=== PATIENT | female | born 1970 | race Caucasian/White ===

== ENCOUNTER 2017-02-22 07:42 | Inpatient (IN) | payer OTHER ==
[~2017-02-22] VITALS: Ht 165.1 cm; Wt 61.6 kg
[~2017-02-22 07:42] MED LIST: ECOT81TA2 PO; FURO1TAB62 PO; FURO20 PO; KCL10C PO; LISI-519 PO; LISI5 PO; PRAV40 PO
[2017-02-22 07:44] VITALS: BP 111/78; PULSE 101; RESP 15; TEMP 97.8; O2SAT 100
[2017-02-22] MEDS ORDERED: ASPIRIN 81 MG CHEW TAB CHEW ONE (08:00)
[2017-02-22] MEDS ORDERED: SODIUM CHLORIDE 0.9% FLUSH 10 ML FLUSH IVF PRN (08:00)
[2017-02-22] MEDS ORDERED: FUROSEMIDE 40 MG/4 ML VIAL IVP ONE (08:00)
--- NOTE | 2017-02-22 08:00 | PD ---
HPI Chief Complaint: Respiratory Symptoms Time Seen by Provider: 07:52 Travel History International Travel<30 days: No Contact w/Intl Traveler<30days: No Traveled to known affect area: No History of Present Illness HPI The patient is a 46-year-old female who presents to the emergency department for 2 days of shortness of breath. The patient does have a history congestive heart failure previous cardiomyopathy, takes Lasix on a daily basis, however, does not take any other medications. The patient states she is unable to take aspirin on a daily basis secondary to financial restrictions. The patient's shortness of breath is worse with exertion, worse with lying supine, and slightly alleviated at rest. The patient does note a productive cough producing clear to white sputum. The patient denies any chest pain or lower extremity edema. She does complain of mild nausea without any vomiting. The patient denies any history of pulmonary embolism or DVT. The patient does follow-up with the wood milling machine hand on an outpatient basis, Dr. Larson, however, has not seen a wood milling machine hand for "sometime ". The patient states she does not have a primary physician. Symptoms are moderate, worse with exertion and lying supine, and slightly alleviated at rest. 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 age 22(leap proceedure done)) Cardiovascular Problems: Yes High Cholesterol: No Chest Pain: Yes (heavyness new onset) Congestive Heart Failure: Yes COPD: No Diabetes: No Endocrine: No Genitourinary: No Immune Disorder: No Musculoskeletal: No Neurologic: No Psychiatric: No Reproductive: No Respiratory: No Sleep Apnea: No Thyroid Disease: No ?: Not LMP: 01/27/17 Dilation and Curettage (D&C): Yes Past Surgical History Section: Yes Other Surgery: Yes ( x 2, d & c, ) Social History Alcohol Use: Yes (occas) Tobacco Use: Yes Substance Use: Yes (raul) Allergies-Medications (Allergen,Severity, Reaction): Coded Allergies: No Known Allergies (Unverified , 02/22/17) Reported Meds & Prescriptions Reported Meds & Active Scripts Active Lisinopril 5 Mg Tab 5 Mg PO DAILY Lasix (Furosemide) 20 Mg Tab 20 Mg PO BID KCl 10 Meq Cap (Potassium Chloride) 10 Meq Capcr 10 Meq PO DAILY 30 Days Pravastatin Sodium 40 Mg Tab 40 Mg PO DAILY 30 Days Prinivil 5 mg (Lisinopril) 5 Mg Tab 2.5 Mg PO HS 30 Days Lasix 20 Mg Tab (Furosemide) 20 Mg Tab 20 Mg PO DAILY 30 Days Ecotrin Low Strength (Aspirin) 81 Mg Tabec 81 Mg PO DAILY 30 Days Review of Systems Except as stated in HPI: all other systems reviewed are Neg General / Constitutional: No: Fever HENT: No: Lightheadedness Cardiovascular: Positive: Dyspnea on exertion, No: Chest Pain or Discomfort, Diaphoresis Respiratory: Positive: Cough, Shortness of Breath, Orthopnea Gastrointestinal: Positive: Nausea, No: Vomiting Musculoskeletal: No: Edema Neurologic: No: Dizziness Physical Exam Narrative GENERAL: Awake, alert, 46 year-old female who appears her stated age and is in no acute respiratory distress. SKIN: Focused skin assessment warm/dry. HEAD: Atraumatic. Normocephalic. EYES: Pupils equal and round. No scleral icterus. No injection or drainage. ENT: No nasal bleeding or discharge. Mucous membranes pink and moist. NECK: Trachea midline. No JVD. CARDIOVASCULAR: Regular, tachycardic with a heart rate of 110. RESPIRATORY: No accessory muscle use. Minimally diminished breath sounds in the bases bilateral. GASTROINTESTINAL: Abdomen soft, non-tender, nondistended. No rebound tenderness. MUSCULOSKELETAL: No obvious deformities. No clubbing. No cyanosis. No edema. Calves are soft bilaterally. NEUROLOGICAL: Awake and alert. No obvious cranial nerve deficits. Motor grossly within normal limits. Normal speech. PSYCHIATRIC: Appropriate mood and affect; insight and judgment normal. Data Data Last Documented VS Vital Signs Date Time Temp Pulse Resp B/P Pulse Ox O2 Delivery O2 Flow Rate FiO2 02/22/17 08:05 100 Room Air 02/22/17 07:56 103 18 02/22/17 07:44 97.8 111/78 Orders Complete Blood Count With Diff (02/22/17 07:57) Comprehensive Metabolic Panel (02/22/17 07:57) B-Type Natriuretic Peptide (02/22/17 07:57) Act Partial Throm Time (Ptt) (02/22/17 07:57) Prothrombin Time / Inr (Pt) (02/22/17 07:57) Magnesium (Mg) (02/22/17 07:57) Ckmb (Isoenzyme) Profile (02/22/17 07:57) Troponin I (02/22/17 07:57) Iv Access Insert/Monitor (02/22/17 07:57) Electrocardiogram (02/22/17 07:57) Ecg Monitoring (02/22/17 07:57) Oximetry (02/22/17 07:57) Oxygen Administration (02/22/17 07:57) Chest, Single Ap (02/22/17 07:57) Sodium Chloride 0.9% Flush (Ns Flush) (02/22/17 08:00) Furosemide Inj (Lasix Inj) (02/22/17 08:00) Aspirin Chew (Aspirin Chew) (02/22/17 08:00) Admit Order (Ed Use Only) (02/22/17 10:04) Labs Laboratory Tests Test 02/22/17 08:07 White Blood Count 9.0 TH/MM3 Red Blood Count 4.23 MIL/MM3 Hemoglobin 11.0 GM/DL Hematocrit 34.4 % Mean Corpuscular Volume 81.4 FL Mean Corpuscular Hemoglobin 26.0 PG Mean Corpuscular Hemoglobin 32.0 % Concent Red Cell Distribution Width 17.2 % Platelet Count 241 TH/MM3 Mean Platelet Volume 10.2 FL Neutrophils (%) (Auto) 63.6 % Lymphocytes (%) (Auto) 27.1 % Monocytes (%) (Auto) 6.8 % Eosinophils (%) (Auto) 1.7 % Basophils (%) (Auto) 0.8 % Neutrophils # (Auto) 5.7 TH/MM3 Lymphocytes # (Auto) 2.4 TH/MM3 Monocytes # (Auto) 0.6 TH/MM3 Eosinophils # (Auto) 0.2 TH/MM3 Basophils # (Auto) 0.1 TH/MM3 CBC Comment DIFF FINAL Differential Comment Prothrombin Time 10.8 SEC Prothromb Time International 1.0 RATIO Ratio Activated Partial 25.9 SEC Thromboplast Time Sodium Level 137 MEQ/L Potassium Level 4.1 MEQ/L Chloride Level 107 MEQ/L Carbon Dioxide Level 23.7 MEQ/L Anion Gap 6 MEQ/L Blood Urea Nitrogen 13 MG/DL Creatinine 0.93 MG/DL Estimat Glomerular Filtration 65 ML/MIN Rate Random Glucose 107 MG/DL Calcium Level 8.1 MG/DL Magnesium Level 2.0 MG/DL Total Bilirubin 0.4 MG/DL Aspartate Amino Transf 58 U/L (AST/SGOT) Alanine Aminotransferase 86 U/L (ALT/SGPT) Alkaline Phosphatase 132 U/L Total Creatine Kinase 67 U/L Troponin I 0.03 NG/ML B-Type Natriuretic Peptide 1522 PG/ML Total Protein 6.3 GM/DL Albumin 2.9 GM/DL MDM Medical Decision Making Medical Screen Exam Complete: Yes Emergency Medical Condition: Yes Interpretation(s) EKG reveals sinus tachycardia with a heart rate of 100. Inverted T waves noted in lead V5, V6,. Low QRS voltage in the extremity leads. No significant changes compared to EKG performed June 25, 2016. Laboratory Tests Test 02/22/17 08:07 White Blood Count 9.0 TH/MM3 Red Blood Count 4.23 MIL/MM3 Hemoglobin 11.0 GM/DL Hematocrit 34.4 % Mean Corpuscular Volume 81.4 FL Mean Corpuscular Hemoglobin 26.0 PG Mean Corpuscular Hemoglobin 32.0 % Concent Red Cell Distribution Width 17.2 % Platelet Count 241 TH/MM3 Mean Platelet Volume 10.2 FL Neutrophils (%) (Auto) 63.6 % Lymphocytes (%) (Auto) 27.1 % Monocytes (%) (Auto) 6.8 % Eosinophils (%) (Auto) 1.7 % Basophils (%) (Auto) 0.8 % Neutrophils # (Auto) 5.7 TH/MM3 Lymphocytes # (Auto) 2.4 TH/MM3 Monocytes # (Auto) 0.6 TH/MM3 Eosinophils # (Auto) 0.2 TH/MM3 Basophils # (Auto) 0.1 TH/MM3 CBC Comment DIFF FINAL Differential Comment Prothrombin Time 10.8 SEC Prothromb Time International 1.0 RATIO Ratio Activated Partial 25.9 SEC Thromboplast Time Sodium Level 137 MEQ/L Potassium Level 4.1 MEQ/L Chloride Level 107 MEQ/L Carbon Dioxide Level 23.7 MEQ/L Anion Gap 6 MEQ/L Blood Urea Nitrogen 13 MG/DL Creatinine 0.93 MG/DL Estimat Glomerular Filtration 65 ML/MIN Rate Random Glucose 107 MG/DL Calcium Level 8.1 MG/DL Magnesium Level 2.0 MG/DL Total Bilirubin 0.4 MG/DL Aspartate Amino Transf 58 U/L (AST/SGOT) Alanine Aminotransferase 86 U/L (ALT/SGPT) Alkaline Phosphatase 132 U/L Total Creatine Kinase 67 U/L Troponin I 0.03 NG/ML B-Type Natriuretic Peptide 1522 PG/ML Total Protein 6.3 GM/DL Albumin 2.9 GM/DL Chest x-ray reveals interstitial pulmonary edema. Differential Diagnosis Differential diagnosis includes congestive heart failure, cardiomyopathy, pleural effusion, pulmonary edema, pulmonary embolism, acute coronary syndrome, bronchitis, COPD, pneumonia. Narrative Course IV was established, labs were drawn and sent, and the patient was placed on cardiac telemetry monitoring and continuous pulse oximetry monitoring. EKG was ordered and interpreted. Chest x-ray was obtained. The patient was administered Lasix 40 mg intravenously. I reviewed the patient's EMR, she had a nuclear medicine myocardial perfusion scan performed on October 13, 2015 which revealed global hypokinesis with an EF of 18%. The patient also had an echo performed on October 12, 2015 which revealed an EF of 25-30%. The patient had a CT pulmonary angiogram which revealed bilateral interstitial edema but no evidence of pulmonary embolism. The patient was provided aspirin 162 mg orally. The patient's BNP is elevated greater than 1500, when I compared to previous BNP is on EMR, it is more than double her previous admission level. Chest x-ray reveals interstitial pulmonary edema. The patient was reevaluated at 9:05 AM, she still has shortness of breath, heart rate was 105, O2 sat was 92 % on room air. The patient is still symptomatic, after discussion with patient regarding outpatient follow-up versus 23 hour observation, she would prefer 23 hour observation. Therefore, the on-call medical service was paged for 23 hour observation. Physician Communication Physician Communication The on-call medical service was paged for 23 hour observation. I discussed the patient with Dr. Rogel who agrees with [address] Mejía. Diagnosis Primary Impression: CHF (congestive heart failure) Qualified Code: I50.9 - Acute on chronic congestive heart failure, unspecified congestive heart failure type Additional Impression: Tobacco abuse Condition: Stable Jose Oquendo MD Feb 22, 2017 08:00
[2017-02-22 08:27] LABS: AUTOMATED NEUTROPHIL # 5.7 TH/MM3 (1.8-7.7); BASOPHIL # 0.1 TH/MM3 (0-0.2); BASOPHIL % 0.8 % (0.0-2.0); EOSINOPHIL # 0.2 TH/MM3 (0-0.4); EOSINOPHIL % 1.7 % (0.0-4.0); HEMATOCRIT 34.4 % (35.0-46.0); HEMO FLAGS DIFF FINAL; LYMPH % 27.1 % (9.0-44.0); LYMPHOCYTE # 2.4 TH/MM3 (1.0-4.8); MEAN CELL VOLUME 81.4 FL (80.0-100.0); MONO % 6.8 % (0.0-8.0); NEUT % 63.6 % (16.0-70.0); PLATELET COUNT 241 TH/MM3 (150-450); RED BLOOD COUNT 4.23 MIL/MM3 (4.00-5.30); RED CELL DISTRIBUTION WIDTH 17.2 % (11.6-17.2)
[2017-02-22 08:35] LABS: APTT (PATIENT) 25.9 SEC (24.3-30.1); PROTHROMBIN TIME - PATIENT 10.8 SEC (9.8-11.6)
[2017-02-22 08:48] LABS: ANION GAP 6 MEQ/L (5-15); AST (GOT) 58 U/L (15-37); BICARBONATE 23.7 MEQ/L (21.0-32.0); BLOOD UREA NITROGEN 13 MG/DL (7-18); CHLORIDE 107 MEQ/L (98-107); GLOMERULAR FILTRATION RATE 65 ML/MIN (>89); POTASSIUM 4.1 MEQ/L (3.5-5.1); SODIUM (NA) 137 MEQ/L (136-145)
[2017-02-22 08:49] LABS: ALT (GPT) 86 U/L (10-53)
[2017-02-22 08:52] LABS: ALKALINE PHOSPHATASE 132 U/L (45-117); TOTAL BILIRUBIN ADULT 0.4 MG/DL (0.2-1.0)
[2017-02-22 08:59] LABS: CREATINE KINASE 67 U/L (26-192)
--- NOTE | 2017-02-22 09:13 | RADRPT ---
EXAM DATE/TIME: 02/22/2017 08:22 [facility] COMPARISON: CHEST SINGLE AP, June 25, 2016, 7:59. INDICATIONS : Short of breath and cough. MEDICAL HISTORY : Congestive heart failure. SURGICAL HISTORY : None. ENCOUNTER: Initial ACUITY: 3 days PAIN SCORE: 0/10 LOCATION: Bilateral chest FINDINGS: A single portable frontal view of the chest shows cardiomegaly with pulmonary vascular engorgement. I ndistinctness of the pulmonary vessels. Bibasilar interstitial prominence. No discrete effusions. Bon y structures are unremarkable. CONCLUSION: Interstitial pulmonary edema. Jay Fernando Jr., MD on February 22, 2017 at 9:10 Board Certified Radiologist. This report was verified electronically.
--- NOTE | 2017-02-22 10:22 | HHI.HP ---
[facility] Service Family Medicine Primary Care Physician No Primary Care Physician Admission Diagnosis congestive heart failure, cardiomyopathy, interstitial edema Diagnoses: International Travel<30 Days: No Contact w/Intl Traveler<30days: No Known Affected Area: No History of Present Illness Ms. Phelps is a 46 y/o F with a history of CHF presenting to the emergency department with 3 days of shortness of breath. She states that the shortness of breath has increased severity over each of the last 3 days and is worse with exertion, lying supine, and not alleviated at rest. She has no chest pain, palpitations, or peripheral edema. She also notes a productive cough with clear/ white sputum, but has resolved over the last 24 hours. She was previously diagnosed with CHF and cardiomyopathy of unknown etiology. She does have a fly worker, Dr. Larson, that has prescribed her Lasix 40 mg twice a day. She states that she has been out of the medication for the past 3 days which is likely exacerbated her symptoms. She has not followed up with her fly worker in over 6 months and her last hospitalization for CHF was approximately 6 months ago. She endorses no history of pulmonary embolism or DVT. On review of systems she does endorse a history of 6 months of intermittent dizziness and nausea that resolves without intervention. She states these episodes are weeks between each other and do not affect her everyday life. Review of Systems Constitutional: COMPLAINS OF: Dizziness, DENIES: Fever, Weight gain, Weight loss Eyes: DENIES: Blurred vision Ears, nose, mouth, throat: DENIES: Throat pain, Running Nose Respiratory: COMPLAINS OF: Cough, Sputum production (White), Shortness of breath, DENIES: Hemoptysis Cardiovascular: COMPLAINS OF: Dyspnea on Exertion, DENIES: Chest pain, Palpitations, Lower Extremity Edema Gastrointestinal: COMPLAINS OF: Nausea, DENIES: Abdominal pain, Diarrhea, Vomiting Genitourinary: DENIES: Dysuria Musculoskeletal: DENIES: Joint pain Integumentary: DENIES: Rash Immunologic/allergic: DENIES: Urticaria Neurologic: COMPLAINS OF: Headache Past Family Social History Past Medical History CHF Denies other PMHx Past Surgical History Laparoscopy with D&C Reported Medications Currently taking Lasix 40mg (two 20mg tablets) twice a day only. Allergies: Coded Allergies: No Known Allergies (Unverified , 02/22/17) Family History Mother - DM, HTN, brain malignancy, Father - DM, Sister - DM 2 children - healthy Social History Lives in [place] by herself. 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 Tobacco - 1/2 pack per day for 30 years (quit for 11 years in that timeframe roughly) Alcohol - occasionally, last drink she cannot remember last drink (months ago), no prior withdrawal Illicit - Marijuana occasionally (last time 2 weeks ago), denies other drug use Physical Exam Vital Signs Vital Signs Date Time Temp Pulse Resp B/P Pulse Ox O2 Delivery O2 Flow Rate FiO2 02/22/17 08:05 100 Room Air 02/22/17 07:56 103 18 100 Room Air 02/22/17 07:44 97.8 101 15 111/78 100 Physical Exam GENERAL: Well-nourished, well-developed female lying in bed in no acute distress watching TV. SKIN: Warm and dry. No rash. HEENT: Atraumatic, normocephalic with EOMI. PERRLA. MMM. No rhinorrhea. Oropharynx clear with no erythema or exudate. Multiple teeth missing with poor dentition. Pulsating JVD appreciated. No LAD or thyroid abnormality appreciated. CARDIOVASCULAR: Regular rate and rhythm without obvious murmurs, gallops, or rubs. RESPIRATORY: Bilateral rhonchi at the bases, right greater than left. No wheezing appreciated. No increased work of breathing appreciated. GASTROINTESTINAL: Abdomen soft, non-tender, nondistended with positive bowel sounds. No masses appreciated. MUSCULOSKELETAL: No cyanosis or edema. Strength grossly WNL. 2+ pulses in all 4 extremity. BACK: Nontender without obvious deformity. No CVA tenderness. NEURO/PSYCH: Afocal. Awake, alert, and oriented x3. Normal speech and judgment. Normal interaction with the examiner. Laboratory Laboratory Tests Test 02/22/17 08:07 White Blood Count 9.0 Red Blood Count 4.23 Hemoglobin 11.0 Hematocrit 34.4 Mean Corpuscular Volume 81.4 Mean Corpuscular Hemoglobin 26.0 Mean Corpuscular Hemoglobin 32.0 Concent Red Cell Distribution Width 17.2 Platelet Count 241 Mean Platelet Volume 10.2 Neutrophils (%) (Auto) 63.6 Lymphocytes (%) (Auto) 27.1 Monocytes (%) (Auto) 6.8 Eosinophils (%) (Auto) 1.7 Basophils (%) (Auto) 0.8 Neutrophils # (Auto) 5.7 Lymphocytes # (Auto) 2.4 Monocytes # (Auto) 0.6 Eosinophils # (Auto) 0.2 Basophils # (Auto) 0.1 CBC Comment DIFF FINAL Differential Comment Prothrombin Time 10.8 Prothromb Time International 1.0 Ratio Activated Partial 25.9 Thromboplast Time Sodium Level 137 Potassium Level 4.1 Chloride Level 107 Carbon Dioxide Level 23.7 Anion Gap 6 Blood Urea Nitrogen 13 Creatinine 0.93 Estimat Glomerular Filtration 65 Rate Random Glucose 107 Calcium Level 8.1 Magnesium Level 2.0 Total Bilirubin 0.4 Aspartate Amino Transf 58 (AST/SGOT) Alanine Aminotransferase 86 (ALT/SGPT) Alkaline Phosphatase 132 Total Creatine Kinase 67 Troponin I 0.03 B-Type Natriuretic Peptide 1522 Total Protein 6.3 Albumin 2.9 Result Diagram: 02/22/17 0807 02/22/17 0807 Imaging Last 72 hours Impressions Chest X-Ray 02/22/17 0757 Signed Impressions: Service Date/Time: Wednesday, February 22, 2017 08:22 - CONCLUSION: Interstitial pulmonary edema. Jay Fernando Jr., MD Assessment and Plan Assessment and Plan Ms. Phelps is a 46 y/o F with a history of CHF presenting to the emergency department with 3 days of shortness of breath likely due to CHF exacerbation secondary to medical noncompliance. Code Status Full code Discussed Condition With Dr. Oquendo, ER physician Dr. Galvez Problem List: (1) CHF (congestive heart failure) Status: Acute Plan: Patient presenting with uncompensated acute on chronic CHF exacerbation with increasing shortness of breath over the past 3 days. Patient has been noncompliant with her outpatient medications. Chest x-ray: Interstitial pulmonary edema EKG: Sinus tachycardia to 100 bpm. Normal intervals. No cardiac block, bundles , or ST elevation/depression appreciated. Reading per medical team. Trending 2. Echocardiogram: Ordered BMP: 1522 Troponin: 0.03, 2 pending Electrolytes: within normal limits Telemetry Incentive spirometer Daily weight ordered Medications: Lasix 40 mg IV given once in ER Aspirin 162 mg given once in ER Restart home Lasix 40 mg by mouth twice a day Continue aspirin 81 mg daily Morphine 2 mg IV every hour when necessary for chest pain Clonidine 0.1 mg every 6 hours when necessary for blood pressure greater than (2) Tobacco abuse Status: Chronic Plan: Patient with chronic tobacco abuse Nicotine patch 14 mg daily, to be removed at night (3) Nutrition, metabolism, and development symptoms Status: Acute Plan: Fluids: Tolerating fluids by mouth, currently in fluid overload Electrolyte: Within normal limits Diet: Heart healthy diet with 1500 mL fluid restriction and 2 g sodium restriction Prophylaxis: DuoNeb's when necessary for shortness of breath, Hydroxyzine when necessary for insomnia, Apoorva-Colace when necessary for constipation (4) No contraindication to deep vein thrombosis (DVT) prophylaxis Status: Acute Plan: Heparin thousand units every 8 hours SCD/TEDs Problem Qualifiers (1) CHF (congestive heart failure): Qualified Code: I50.9 - Acute on chronic congestive heart failure, unspecified congestive heart failure type Hu Rogel MD R2 Feb 22, 2017 10:22
[2017-02-22] MEDS ORDERED: SODIUM CHLORIDE 0.9% FLUSH 10 ML FLUSH IV FLUSH SCH (10:30)
[2017-02-22] MEDS ORDERED: SODIUM CHLORIDE 0.9% FLUSH 10 ML FLUSH IV FLUSH PRN ×2 (10:30→11:00)
[2017-02-22] MEDS: SODIUM CHLORIDE 0.9% FLUSH 10 ML FLUSH IV FLUSH SCH ×2 (11:00→20:56)
[2017-02-22] MEDS ORDERED: MORPHINE SULFATE 4 MG/ML INJ IV PUSH PRN (11:00)
[2017-02-22] MEDS ORDERED: ASPIRIN 81 MG CHEW TAB CHEW SCH (11:00)
[2017-02-22] MEDS: HEPARIN SODIUM - SQ 10,000 UNITS/ML VIAL SQ SCH ×2 (11:52→17:50)
[2017-02-22] MEDS: POTASSIUM CHLORIDE 10 MEQ CONTROLLED RELEASE TAB PO SCH ×2 (11:52→20:55)
[2017-02-22 12:00] VITALS: BP 106/77; PULSE 103; RESP 18; TEMP 98.2; O2SAT 98
[2017-02-22 12:11] VITALS: O2SAT 100
[2017-02-22 14:55] VITALS: BP 105/76; PULSE 107; RESP 20; TEMP 98.2; O2SAT 97
--- NOTE | 2017-02-22 14:59 | EKG ---
Date Performed: 02/22/2017 Time Performed: 08:06:14 PTAGE: 46 years EKG: SINUS TACHYCARDIA LEFT ATRIAL ENLARGEMENT LOW QRS VOLTAGE IN EXTREMITY LEADS NONSPECIFIC T- WAVE ABNORMALITY ABNORMAL ECG PREVIOUS TRACING : 06/25/2016 07.56 Since previous tracing, no significant change noted DOCTOR: Nathan Genao Interpretating Date/Time 02/22/2017 14:56:56
[2017-02-22] MEDS ORDERED: cloNIDine HCL 0.1 MG TAB PO PRN (15:15)
[2017-02-22] MEDS ORDERED: NICOTINE 14 MG/24 HR PATCH T-DERMAL ONE (15:15)
[2017-02-22] MEDS ORDERED: DOCUSATE SODIUM 50 MG/SENNA 8.6 MG TAB PO PRN (15:15)
[2017-02-22 17:31] VITALS: PULSE 14
[2017-02-22] MEDS: FUROSEMIDE 40 MG TAB PO SCH (17:49)
--- NOTE | 2017-02-22 18:15 | HHI.FPPN ---
Subjective Remarks Medicine attending note: Pleasant 46-year-old woman admitted through the emergency room with 2-3 days of increasing shortness of breath without chest pain. Patient has a history of a dilated cardiomyopathy with a previous echo cardiogram and October 2015 revealing a ejection fraction of 25-30%. Nuclear stress test old global hypokinesis apparently without evidence of ischemic disease. No known viral etiology, denies any relationship to drug usage, no cocaine usage. States she has used marijuana in the past. Denies history of excessive alcohol usage in the past. Patient does state that she's had difficulty maintaining her medications. Previously on diuretics, afterload reduction and lipid therapy. Has been taking Lasix 20 mg twice a day and Ecotrin 81 mg daily. Currently comfortable after having diuresed initially through treatment in the emergency room. Objective Vitals Vital Signs Date Time Temp Pulse Resp B/P Pulse Ox O2 Delivery O2 Flow Rate FiO2 02/22/17 18:01 02/22/17 17:31 14 02/22/17 14:55 98.2 107 20 105/76 97 02/22/17 12:11 100 21 02/22/17 12:00 98.2 103 18 106/77 98 Room Air 02/22/17 08:05 100 Room Air 02/22/17 07:56 103 18 100 Room Air 02/22/17 07:44 97.8 101 15 111/78 100 I/O 02/21/17 02/21/17 02/21/17 02/22/17 02/22/17 02/22/17 07:00 15:00 23:00 07:00 15:00 23:00 Intake Total 0 ml Balance 0 ml Intake IV Total 0 ml Result Diagram: 02/22/17 0807 02/22/17 0807 Objective Remarks Vital signs noted. Slightly tachycardic. Appearance: Middle-age woman who is alert oriented pleasant conversation in no acute distress resting supine. HEENT: Oropharynx nonlocalizing Neck: JVD present to 30. Lungs: Bibasilar Rales, superiorly clear to auscultation. Cardiac: S1-S2, soft systolic murmur. No definite S3, no rubs. Abdomen: Appearance unremarkable, soft, palpation organomegaly or tenderness, no masses. Extremities without edema, intact pedal pulses, feet are warm and dry. EKG no acute changes, troponins within normal limits. A/P Assessment and Plan 46-year-old woman admitted with congestive heart failure, etiology related to a dilated cardiomyopathy with a markedly diminished ejection fraction and global hypokinesis, the etiology of which is not clear. Patient seen and examined. Case reviewed and discussed with resident team. Agree with plan of care as discussed with me and documented in the resident note. Problem List: (1) CHF (congestive heart failure) Status: Acute Plan: Patient presenting with uncompensated acute on chronic CHF exacerbation with increasing shortness of breath over the past 3 days. Patient has been noncompliant with her outpatient medications. Chest x-ray: Interstitial pulmonary edema EKG: Sinus tachycardia to 100 bpm. Normal intervals. No cardiac block, bundles , or ST elevation/depression appreciated. Reading per medical team. Trending 2. Echocardiogram: Ordered BMP: 1522 Troponin: 0.03, 2 pending Electrolytes: within normal limits Telemetry Incentive spirometer Daily weight ordered Medications: Lasix 40 mg IV given once in ER Aspirin 162 mg given once in ER Restart home Lasix 40 mg by mouth twice a day Continue aspirin 81 mg daily Morphine 2 mg IV every hour when necessary for chest pain Clonidine 0.1 mg every 6 hours when necessary for blood pressure greater than (2) Tobacco abuse Status: Chronic Plan: Patient with chronic tobacco abuse Nicotine patch 14 mg daily, to be removed at night (3) Nutrition, metabolism, and development symptoms Status: Acute Plan: Fluids: Tolerating fluids by mouth, currently in fluid overload Electrolyte: Within normal limits Diet: Heart healthy diet with 1500 mL fluid restriction and 2 g sodium restriction Prophylaxis: DuoNeb's when necessary for shortness of breath, Hydroxyzine when necessary for insomnia, Apoorva-Colace when necessary for constipation (4) No contraindication to deep vein thrombosis (DVT) prophylaxis Status: Acute Plan: Heparin thousand units every 8 hours SCD/TEDs Problem Qualifiers (1) CHF (congestive heart failure): Qualified Code: I50.9 - Acute on chronic congestive heart failure, unspecified congestive heart failure type Jack Mejía MD Feb 22, 2017 18:15
[2017-02-22 20:00] VITALS: BP 110/79; PULSE 106; RESP 20; TEMP 98; O2SAT 99
[2017-02-22] MEDS: REMOVE OLD PATCH T-DERMAL SCH (20:56)
[2017-02-23] VITALS (8 sets, daily range): BP systolic 111–129; BP diastolic 61–91; PULSE 103–115; RESP 18–24; TEMP 97.2–98; O2SAT 95–99
[2017-02-23] MEDS: HEPARIN SODIUM - SQ 10,000 UNITS/ML VIAL SQ SCH ×3 (02:46→18:42)
[2017-02-23] MEDS: RESP: ALBUTEROL 2.5 MG/IPRATROPIUM 0.5 MG NEB (PRN) NEB (03:05)
[2017-02-23 04:17] LABS: HEMATOCRIT 34.2 % (35.0-46.0); MEAN CELL VOLUME 81.6 FL (80.0-100.0); MEAN CORPUSCULAR HEMOGLOBIN 25.5 PG (27.0-34.0); MEAN CORPUSCULAR HGB CONC 31.2 % (32.0-36.0); PLATELET COUNT 223 TH/MM3 (150-450); RED BLOOD COUNT 4.19 MIL/MM3 (4.00-5.30); RED CELL DISTRIBUTION WIDTH 17.2 % (11.6-17.2); REVIEW FLAG FINAL; WHITE BLOOD COUNT 10.4 TH/MM3 (4.0-11.0)
[2017-02-23 05:30] LABS: ALT (GPT) 82 U/L (10-53); ANION GAP 5 MEQ/L (5-15); AST (GOT) 43 U/L (15-37); BICARBONATE 24.1 MEQ/L (21.0-32.0); BLOOD UREA NITROGEN 13 MG/DL (7-18); CHLORIDE 107 MEQ/L (98-107); GLOMERULAR FILTRATION RATE 70 ML/MIN (>89); POTASSIUM 4.1 MEQ/L (3.5-5.1); SODIUM (NA) 136 MEQ/L (136-145)
[2017-02-23 05:33] LABS: ALKALINE PHOSPHATASE 126 U/L (45-117); TOTAL BILIRUBIN ADULT 0.4 MG/DL (0.2-1.0)
[2017-02-23] MEDS: NICOTINE 14 MG/24 HR PATCH T-DERMAL SCH (09:33)
[2017-02-23] MEDS: POTASSIUM CHLORIDE 10 MEQ CONTROLLED RELEASE TAB PO SCH ×2 (09:33→20:51)
[2017-02-23] MEDS: ASPIRIN 81 MG CHEW TAB CHEW SCH (09:33)
[2017-02-23] MEDS: FUROSEMIDE 40 MG TAB PO SCH ×2 (09:33→17:45)
[2017-02-23] MEDS: SODIUM CHLORIDE 0.9% FLUSH 10 ML FLUSH IV FLUSH SCH ×2 (09:34→20:50)
[2017-02-23] MEDS: SPIRONOLACTONE 25 MG TAB PO SCH (12:12)
--- NOTE | 2017-02-23 12:12 | HHI.FPPN ---
Subjective Remarks 46 year old female with a history of CHF and cardiomyopathy presented to the ED yesterday with increasing shortness of breath. She also reported a productive cough with white sputum. Before presentation she ran out of her medications. This morning she reports she slept poorly overnight and had night sweats and chills. She had no fevers overnight. She continues to have shortness of breath. She also has a headache and chronic right shoulder pain. She continues to have pedal edema. No chest pain. No abdominal pain, nausea, vomiting, or diarrhea. No calf tenderness. She is on room air and not in respiratory distress. She is mildly tachycardiac at about 105 rate. (Fahad Gutierrez MD R3) Objective Vitals Vital Signs Date Time Temp Pulse Resp B/P Pulse Ox O2 Delivery O2 Flow Rate FiO2 02/23/17 08:04 97.2 105 18 111/84 99 02/23/17 06:29 105 02/23/17 04:08 98.0 103 20 127/81 97 02/23/17 00:09 97.7 108 24 124/89 95 02/22/17 20:00 106 02/22/17 20:00 98.0 106 20 110/79 99 02/22/17 18:01 02/22/17 17:31 14 02/22/17 14:55 98.2 107 20 105/76 97 02/22/17 12:11 100 21 02/22/17 12:00 98.2 103 18 106/77 98 Room Air I/O 02/22/17 02/22/17 02/22/17 02/23/17 02/23/17 02/23/17 07:00 15:00 23:00 07:00 15:00 23:00 Intake Total 480 ml 800 ml Balance 480 ml 800 ml Intake Oral 480 ml 800 ml IV Total 0 ml # Voids 2 3 # Bowel Movements 0 0 (Fahad Gutierrez MD R3) Result Diagram: 02/23/17 0358 02/23/17 0358 Imaging Last 72 hours Impressions Chest X-Ray 02/22/17 0757 Signed Impressions: Service Date/Time: Wednesday, February 22, 2017 08:22 - CONCLUSION: Interstitial pulmonary edema. Jay Fernando Jr., MD Objective Remarks Vital signs noted. Slightly tachycardic. BP normal. Afebrile. Appearance: Sitting up in bed, no distress, room air, breathing normal HEENT: Normocephalic, no nasal discharge Neck: JVD present to 30. Lungs: Crackles in the lung bases bilaterally, on room air, no distress, no wheezing Cardiac: S1-S2, S3 present, no murmur heard today. Abdomen: Soft, nontender, non-distended, no organomegaly Extremities: Has pedal edema (Fahad Gutierrez MD R3) A/P Assessment and Plan 46-year-old woman admitted with likely acute exacerbation of CHF, etiology related to dilated cardiomyopathy with a markedly diminished ejection fraction and global hypokinesis, the etiology of which is not clear. Discharge Planning Discharge when shortness of breath reasonably resolved, afebrile, no leukocytosis, medically stable. Will need to be discharged on CHF medication regimen. A difficulty is that she lacks a primary care physician at this time. Consulting case management to help her find a PCP. She would also benefit from a fiscal specialist and a cardiac rehab program. Ultimately she may require an ICD or even a heart transplant given the severity of her disease. (Fahad Gutierrez MD R3) Assessment and Plan Patient seen and examined on 02/23/17. Case reviewed and discussed with the resident team. Agree with the plan of care as discussed with me and documented in the resident note. (Jack Mejía MD) Problem List: (1) CHF (congestive heart failure) Status: Acute Plan: History of CHF with cardiomyopathy, severe EF reduction to the 20-25% range 6 months ago. Patient presenting with uncompensated acute on chronic CHF exacerbation with increasing shortness of breath over the past 3 days. Chest x- ray: Interstitial pulmonary edema. EKG: Sinus tachycardia to 100 bpm. Normal intervals. No cardiac block, bundles, or ST elevation/depression appreciated. Troponins normal X3. BNP elevated to 1522. ECHO pending. - Supplemental O2 therapy as needed Continue cardiac monitoring Continue incentive spirometry Request strict I's and O's and daily weights - Salt and free water restriction Lasix 40 mg by mouth twice a day - Spironolactone 25 mg daily - Start jason inhibitor and beta erinn when stabilized before discharge (2) Tobacco abuse Status: Chronic Plan: Patient with chronic tobacco abuse Nicotine patch 14 mg daily, to be removed at night - Counseling on nicotine cessation - Would benefit from patches/gum/medication as an outpatient (3) Nutrition, metabolism, and development symptoms Status: Acute Plan: Fluids: 1.5L free water restriction, Electrolyte: Within normal limits, sodium restriction 2g Diet: Heart healthy diet with 1500 mL fluid restriction and 2 g sodium restriction Prophylaxis: DuoNeb's when necessary for shortness of breath, Hydroxyzine when necessary for insomnia, Apoorva-Colace when necessary for constipation (4) No contraindication to deep vein thrombosis (DVT) prophylaxis Status: Acute Plan: Heparin 1000 units every 8 hours SCD/TEDs (Fahad Gutierrez MD R3) Problem Qualifiers (1) CHF (congestive heart failure): Fahad Gutierrez MD R3 Feb 23, 2017 12:12 Jack Mejía MD Feb 25, 2017 16:05
--- NOTE | 2017-02-23 15:49 | EKG ---
Date Performed: 02/22/2017 Time Performed: 17:25:24 PTAGE: 46 years EKG: SINUS TACHYCARDIA POSSIBLE LEFT ATRIAL ENLARGEMENT NONSPECIFIC T-WAVE ABNORMALITY ABNORMAL RHYTHM ECG LOW LIMB LEAD VOLTAGE Since PREVIOUS TRACING , no significant change noted PREVIOUS TRACIN02/22/2017 14.24 DOCTOR: Roshan Norwood Interpretating Date/Time 02/23/2017 15:47:31
--- NOTE | 2017-02-23 15:49 | EKG ---
Date Performed: 02/23/2017 Time Performed: 02:47:58 PTAGE: 46 years EKG: Sinus tachycardia Leftward axis Lateral T wave changes are nonspecific Low limb lead voltag e Borderline ECG PREVIOUS TRACING : 02/22/2017 17.25 Since previous tracing, no significant change noted DOCTOR: Roshan Norwood Interpretating Date/Time 02/23/2017 15:48:42
--- NOTE | 2017-02-23 15:49 | EKG ---
Date Performed: 02/22/2017 Time Performed: 14:24:04 PTAGE: 46 years EKG: SINUS TACHYCARDIA LEFT ATRIAL ENLARGEMENT MARKED LEFT AXIS DEVIATION NONSPECIFIC T-WAVE ABN ORMALITY LOW QRS VOLTAGE IN EXTREMITY LEADS Since previous tracing, no significant change noted ABNOR MAL ECG PREVIOUS TRACING : 02/22/2017 08.06 DOCTOR: Roshan Norwood Interpretating Date/Time 02/23/2017 15:47:07
[2017-02-23] MEDS: REMOVE OLD PATCH T-DERMAL SCH (20:51)
[2017-02-24] VITALS (7 sets, daily range): BP systolic 101–126; BP diastolic 66–86; PULSE 93–108; RESP 18–22; TEMP 97–97.7; O2SAT 94–100
[2017-02-24] MEDS: HEPARIN SODIUM - SQ 10,000 UNITS/ML VIAL SQ SCH ×3 (03:46→18:15)
[2017-02-24 06:16] LABS: HEMATOCRIT 36.9 % (35.0-46.0); MEAN CELL VOLUME 81.8 FL (80.0-100.0); MEAN CORPUSCULAR HEMOGLOBIN 25.8 PG (27.0-34.0); MEAN CORPUSCULAR HGB CONC 31.5 % (32.0-36.0); PLATELET COUNT 234 TH/MM3 (150-450); RED BLOOD COUNT 4.51 MIL/MM3 (4.00-5.30); RED CELL DISTRIBUTION WIDTH 17.1 % (11.6-17.2); REVIEW FLAG FINAL
[2017-02-24 06:44] LABS: ALKALINE PHOSPHATASE 113 U/L (45-117); ALT (GPT) 66 U/L (10-53); ANION GAP 11 MEQ/L (5-15); AST (GOT) 29 U/L (15-37); BICARBONATE 19.3 MEQ/L (21.0-32.0); BLOOD UREA NITROGEN 13 MG/DL (7-18); CHLORIDE 108 MEQ/L (98-107); GLOMERULAR FILTRATION RATE 82 ML/MIN (>89); POTASSIUM 4.4 MEQ/L (3.5-5.1); SODIUM (NA) 138 MEQ/L (136-145); TOTAL BILIRUBIN ADULT 0.6 MG/DL (0.2-1.0)
[2017-02-24] MEDS: RESP: ALBUTEROL 2.5 MG/IPRATROPIUM 0.5 MG NEB (PRN) NEB ×2 (08:15→16:20)
[2017-02-24] MEDS: SODIUM CHLORIDE 0.9% FLUSH 10 ML FLUSH IV FLUSH SCH ×2 (09:00→21:58)
[2017-02-24] MEDS: FUROSEMIDE 40 MG TAB PO SCH ×2 (09:00→17:39)
[2017-02-24] MEDS: POTASSIUM CHLORIDE 10 MEQ CONTROLLED RELEASE TAB PO SCH ×2 (09:00→21:58)
[2017-02-24] MEDS: NICOTINE 14 MG/24 HR PATCH T-DERMAL SCH (09:00)
[2017-02-24] MEDS: ASPIRIN 81 MG CHEW TAB CHEW SCH (09:00)
[2017-02-24] MEDS: SPIRONOLACTONE 25 MG TAB PO SCH (09:00)
--- NOTE | 2017-02-24 13:38 | HHI.FPPN ---
Subjective Remarks Patient seen and examined this morning by medical team. No acute events overnight per nursing staff. Patient remains tachycardic to the low 100s, otherwise vitals stable. Patient continues to be mildly diaphoretic while remaining afebrile. She does endorse some mild dyspnea, but does state that it is improved during her hospitalization. We discussed the addition of spironolactone and metoprolol medications for her extensive heart failure. She is agreeable to these medications. She has no other complaints and denies any fevers, chills, chest pain, dizziness, NVD, abdominal pain, or calf tenderness. Objective Vitals Vital Signs Date Time Temp Pulse Resp B/P (MAP) Pulse Ox O2 Delivery O2 Flow Rate FiO2 02/24/17 04:00 97.5 103 18 123/83 (96) 94 02/24/17 04:00 Room Air 02/24/17 00:00 Room Air 02/24/17 00:00 97.7 98 18 126/86 (99) 98 02/23/17 20:09 106 02/23/17 20:04 96 02/23/17 20:00 Room Air 02/23/17 20:00 97.5 106 18 111/91 (98) 97 02/23/17 16:26 97.9 115 18 129/85 (100) 95 I/O 02/23/17 02/23/17 02/23/17 02/24/17 02/24/17 02/24/17 07:00 15:00 23:00 07:00 15:00 23:00 Intake Total 800 ml 600 ml 100 ml Output Total 700 ml 625 ml 700 ml Balance 800 ml -100 ml -525 ml -700 ml Intake Oral 800 ml 600 ml 100 ml Output Urine Total 700 ml 625 ml 700 ml # Voids 3 # Bowel Movements 0 0 0 0 Result Diagram: 02/24/17 0545 02/24/1745 Objective Remarks GENERAL: Well-nourished, well-developed female sitting up in bed watching TV in no acute distress. SKIN: Warm and moist. No rash. HEENT: Atraumatic, normocephalic with EOMI. Pulsating JVD appreciated on physical exam. CARDIOVASCULAR: Regular rate and rhythm without obvious murmurs, gallops, or rubs. S3 appreciated. RESPIRATORY: Improved bilateral crackles from prior exam. No increased work of breathing. Patient currently on room air in no distress. GASTROINTESTINAL: Abdomen soft, non-tender, nondistended with positive bowel sounds. No masses appreciated. MUSCULOSKELETAL: No cyanosis or edema. Strength grossly WNL. Mildly improved pedal edema. NEURO/PSYCH: Afocal. Awake, alert, and oriented x3. Normal interaction with examiner and medical staff. Normal speech and judgment. A/P Assessment and Plan 46-year-old woman admitted with acute on chronic exacerbation of CHF, etiology related to dilated cardiomyopathy with a markedly diminished ejection fraction and global hypokinesis, the etiology of which is not clear. Discharge Planning Discharge when shortness of breath reasonably resolved, afebrile, no leukocytosis, medically stable. Will need to be discharged on CHF medication regimen. A difficulty is that she lacks a primary care physician at this time. Consulting case management to help her find a PCP. She would also benefit from a ice bag assembler and a cardiac rehab program. Ultimately she may require an ICD or even a heart transplant given the severity of her disease. Problem List: (1) CHF (congestive heart failure) ICD Codes: I50.9 - Heart failure, unspecified Status: Acute Plan: History of CHF with cardiomyopathy, severe EF reduction to the 20-25% range 6 months ago. Patient presenting with uncompensated acute on chronic CHF exacerbation with increasing shortness of breath over the past 3 days. Chest x- ray: Interstitial pulmonary edema. EKG: Sinus tachycardia to 100 bpm. Normal intervals. No cardiac block, bundles, or ST elevation/depression appreciated. Troponins normal X3. BNP elevated to 1522. ECHO pending. -Echocardiogram: Pending - Supplemental O2 therapy as needed Continue cardiac monitoring Continue incentive spirometry Request strict I's and O's and daily weights - Salt and free water restriction Lasix 40 mg by mouth twice a day - Spironolactone 25 mg daily -Metoprolol tartrate 12.5 mg twice a day -Defer on starting lisinopril to monitor blood pressure as multiple medications have been initiated over the last 48 hours (2) Tobacco abuse ICD Codes: Z72.0 - Tobacco use Status: Chronic Plan: Patient with chronic tobacco abuse Nicotine patch 14 mg daily, to be removed at night - Counseling on nicotine cessation - Would benefit from patches/gum/medication as an outpatient (3) Nutrition, metabolism, and development symptoms ICD Codes: R63.8 - Other symptoms and signs concerning food and fluid intake Status: Acute Plan: Fluids: 1.5L free water restriction, Electrolyte: Within normal limits, sodium restriction 2g Diet: Heart healthy diet with 1500 mL fluid restriction and 2 g sodium restriction Prophylaxis: DuoNeb's when necessary for shortness of breath, Hydroxyzine when necessary for insomnia, Apoorva-Colace when necessary for constipation (4) No contraindication to deep vein thrombosis (DVT) prophylaxis ICD Codes: Z78.9 - Other specified health status Status: Acute Plan: Heparin 5000 units every 8 hours SCD/TEDs Problem Qualifiers (1) CHF (congestive heart failure): Hu Rogel MD R2 Feb 24, 2017 13:38
--- NOTE | 2017-02-24 14:24 | ECHRPT ---
Indication: heart failure CONCLUSIONS Moderately dilated left ventricle. The left ventricular systolic function is severely reduced with an estimated ejection fraction less than 20%. Global hypokinesis. Wall thickness is normal. Global hypokinesis The left atrial size is moderately dilated. Atrial septal aneurysm is present (benign finding). Ildbadop-fy-[id number] mitral valve regurgitation (central to slightly posteriorly directed) Trace aortic valve regurgitation. There is mild tricuspid valve regurgitation. There is estimated mild pulmonary hypertension present (48 mmHg). A small left sided pleural effusion is noted. BP: 111 / 78 HR: 103 Rhythm: Sinus MEASUREMENTS (Male / Female) Normal Values Technical Quality:Excellent 2D ECHO LV Diastolic Diameter PLAX 6.4 cm 4.2 - 5.9 / 3.9 - 5.3 cm LV Systolic Diameter PLAX 5.9 cm IVS Diastolic Thickness 0.9 cm 0.6 - 1.0 / 0.6 - 0.9 cm LVPW Diastolic Thickness 0.7 cm 0.6 - 1.0 / 0.6 - 0.9 cm LV Relative Wall Thickness 0.3 RV Internal Dim ED PLAX 2.3 cm LA Systolic Diameter LX 4.2 cm 3.0 - 4.0 / 2.7 - 3.8 cm M-MODE Aortic Root Diameter MM 2.8 cm AV Cusp Separation MM 1.8 cm DOPPLER MR Peak Velocity 543.0 cm/s MR Peak Gradient 117.9 mmHg Mitral E Point Velocity 127.0 cm/s TR Peak Velocity 309.0 cm/s TR Peak Gradient 38.2 mmHg FINDINGS LEFT VENTRICLE Moderately dilated left ventricle. Wall thickness is normal. The left ventricular systolic function is severely reduced with an estimated ejection fraction less than 20%. RIGHT VENTRICLE Normal right ventricular size and systolic function. LEFT ATRIUM The left atrial size is moderately dilated. RIGHT ATRIUM The right atrial size is normal. ATRIAL SEPTUM Atrial septal aneurysm is present (benign finding). AORTA The aortic root and proximal ascending aorta are normal in size on limited imaging. MITRAL VALVE Yuvcailg-cy-grfhxj mitral valve regurgitation. Mild thickening of the mitral valve leaflets. AORTIC VALVE Trace aortic valve regurgitation. TRICUSPID VALVE There is mild tricuspid valve regurgitation. There is estimated mild pulmonary hypertension present (48 mmHg). PULMONARY VALVE The pulmonary valve is not well visualized. VESSELS The inferior vena cava is normal in size. PERICARDIUM A small left sided pleural effusion is noted. Jaylen Singh MD (Electronically Signed) Final Date:24 February 2017 14:23
[2017-02-24] MEDS: METOPROLOL TARTRATE 25 MG TAB PO SCH ×2 (15:44→21:58)
[2017-02-24] MEDS: ALPRAZolam 0.5 MG TAB PO PRN (18:15)
[2017-02-24] MEDS: REMOVE OLD PATCH T-DERMAL SCH (21:00)
[2017-02-25] VITALS (10 sets, daily range): BP systolic 92–108; BP diastolic 59–79; PULSE 88–104; RESP 16–22; TEMP 97.4–98; O2SAT 94–100
[2017-02-25] MEDS: ALPRAZolam 0.5 MG TAB PO PRN ×3 (03:50→22:36)
[2017-02-25] MEDS: HEPARIN SODIUM - SQ 10,000 UNITS/ML VIAL SQ SCH ×3 (03:50→17:31)
[2017-02-25] MEDS ORDERED: SPIR25 PO (07:54)
[2017-02-25] MEDS ORDERED: ASPI81CH25 CHEW (07:54)
[2017-02-25] MEDS ORDERED: METO25TA3 PO (07:54)
[2017-02-25 08:30] LABS: HEMATOCRIT 37.6 % (35.0-46.0); MEAN CELL VOLUME 80.7 FL (80.0-100.0); MEAN CORPUSCULAR HGB CONC 32.3 % (32.0-36.0); PLATELET COUNT 225 TH/MM3 (150-450); RED BLOOD COUNT 4.66 MIL/MM3 (4.00-5.30); RED CELL DISTRIBUTION WIDTH 17.4 % (11.6-17.2); REVIEW FLAG FINAL; WHITE BLOOD COUNT 9.8 TH/MM3 (4.0-11.0)
[2017-02-25] MEDS: ASPIRIN 81 MG CHEW TAB CHEW SCH (08:41)
[2017-02-25] MEDS: SPIRONOLACTONE 25 MG TAB PO SCH (08:41)
[2017-02-25] MEDS: METOPROLOL TARTRATE 25 MG TAB PO SCH ×2 (08:41→20:29)
[2017-02-25] MEDS: FUROSEMIDE 40 MG TAB PO SCH ×2 (08:42→17:30)
[2017-02-25] MEDS: NICOTINE 14 MG/24 HR PATCH T-DERMAL SCH (08:42)
[2017-02-25] MEDS: POTASSIUM CHLORIDE 10 MEQ CONTROLLED RELEASE TAB PO SCH ×2 (08:42→20:29)
[2017-02-25] MEDS: SODIUM CHLORIDE 0.9% FLUSH 10 ML FLUSH IV FLUSH SCH ×2 (08:42→20:29)
[2017-02-25 08:49] LABS: BICARBONATE 20.8 MEQ/L (21.0-32.0); POTASSIUM 4.6 MEQ/L (3.5-5.1)
--- NOTE | 2017-02-25 11:28 | HHI.FPPN ---
Subjective Remarks Patient seen and examined bedside. Patient had difficulty sleeping overnight. She says this is due to being in the hospital. Patient denies any pains overnight. Patient denies any shortness of breath or new swelling. Patient denies fevers or chills. Patient denies chest pain/shortness of breath and dizziness. (Martha Selby MD R2) Objective Vitals Vital Signs Date Time Temp Pulse Resp B/P (MAP) Pulse Ox O2 Delivery O2 Flow Rate FiO2 02/25/17 09:56 100 21 02/25/17 08:00 97.4 96 18 107/79 (88) 94 02/25/17 07:52 100 02/25/17 07:42 Room Air 02/25/17 04:00 97.6 97 18 108/77 (87) 99 02/25/17 04:00 Room Air 02/25/17 00:00 Room Air 02/25/17 00:00 98.0 88 22 92/70 (77) 99 02/24/17 20:26 99 02/24/17 20:00 97.5 93 20 101/66 (78) 96 02/24/17 20:00 Room Air 02/24/17 16:00 97.0 102 18 114/76 (89) 99 02/24/17 12:00 97.7 108 20 116/78 (91) 94 I/O 02/24/17 02/24/17 02/24/17 02/25/17 02/25/17 02/25/17 07:00 15:00 23:00 07:00 15:00 23:00 Intake Total 630 ml 250 ml Output Total 700 ml 1800 ml 1000 ml Balance -700 ml -1170 ml -750 ml Intake Oral 630 ml 250 ml Output Urine Total 700 ml 1800 ml 1000 ml # Bowel Movements 0 0 1 (Martha Selby MD R2) Result Diagram: 02/25/17 0711 02/25/17 0711 Objective Remarks GENERAL: Well-nourished, well-developed female sitting up in bed watching TV in no acute distress. SKIN: Warm and moist. No rash. HEENT: Atraumatic, normocephalic with EOMI. Pulsating JVD appreciated on physical exam. CARDIOVASCULAR: Regular rate and rhythm without obvious murmurs, gallops, or rubs. S3 appreciated. RESPIRATORY: Improved bilateral crackles from prior exam, however patient continues to have crackles in lower lung leon. No increased work of breathing. Patient currently on room air in no distress. GASTROINTESTINAL: Abdomen soft, non-tender, nondistended with positive bowel sounds. No masses appreciated. MUSCULOSKELETAL: No cyanosis or edema. Strength grossly WNL. Mildly improved pedal edema. NEURO/PSYCH: Afocal. Awake, alert, and oriented x3. Normal interaction with examiner and medical staff. Normal speech and judgment. (Martha Selby MD R2) A/P Assessment and Plan 46-year-old woman admitted with acute on chronic exacerbation of CHF, etiology related to dilated cardiomyopathy with a markedly diminished ejection fraction and global hypokinesis, the etiology of which is not clear. Discharge Planning Discharge when shortness of breath reasonably resolved, afebrile, no leukocytosis, medically stable. Will need to be discharged on CHF medication regimen. A difficulty is that she lacks a primary care physician at this time. Consulting case management to help her find a PCP. She would also benefit from a plant technical specialist and a cardiac rehab program. Ultimately she may require an ICD or even a heart transplant given the severity of her disease. (Martha Selby MD R2) Assessment and Plan Patient seen and examined. Case reviewed and discussed with the resident team. Agree with the plan of care as discussed with me and documented in the resident note. (Jack Mejía MD) Problem List: (1) CHF (congestive heart failure) ICD Codes: I50.9 - Heart failure, unspecified Status: Acute Plan: History of CHF with cardiomyopathy, severe EF reduction to the 20-25% range 6 months ago. Patient presenting with uncompensated acute on chronic CHF exacerbation with increasing shortness of breath over the past 3 days. Chest x- ray: Interstitial pulmonary edema. EKG: Sinus tachycardia to 100 bpm. Normal intervals. No cardiac block, bundles, or ST elevation/depression appreciated. Troponins normal X3. BNP elevated to 1522. ECHO pending. -Echocardiogram: Pending - Supplemental O2 therapy as needed Continue cardiac monitoring Continue incentive spirometry Request strict I's and O's and daily weights - Salt and free water restriction Lasix 40 mg by mouth twice a day - Spironolactone 25 mg daily -Metoprolol tartrate 12.5 mg twice a day -Defer on starting lisinopril to monitor blood pressure as multiple medications have been initiated over the last 48 hours (2) Tobacco abuse ICD Codes: Z72.0 - Tobacco use Status: Chronic Plan: Patient with chronic tobacco abuse Nicotine patch 14 mg daily, to be removed at night - Counseling on nicotine cessation - Would benefit from patches/gum/medication as an outpatient (3) Nutrition, metabolism, and development symptoms ICD Codes: R63.8 - Other symptoms and signs concerning food and fluid intake Status: Acute Plan: Fluids: 1.5L free water restriction, Electrolyte: Within normal limits, sodium restriction 2g Diet: Heart healthy diet with 1500 mL fluid restriction and 2 g sodium restriction Prophylaxis: DuoNeb's when necessary for shortness of breath, Hydroxyzine when necessary for insomnia, Apoorva-Colace when necessary for constipation (4) No contraindication to deep vein thrombosis (DVT) prophylaxis ICD Codes: Z78.9 - Other specified health status Status: Acute Plan: Heparin 5000 units every 8 hours SCD/TEDs (Martha Selby MD R2) Problem Qualifiers (1) CHF (congestive heart failure): Martha Selby MD R2 Feb 25, 2017 11:27 Jack Mejía MD Feb 25, 2017 16:06
[2017-02-25] MEDS: REMOVE OLD PATCH T-DERMAL SCH (20:29)
[2017-02-26] VITALS: BP 101/68; PULSE 90; RESP 22; TEMP 97.9; O2SAT 99
[2017-02-26] MEDS: HEPARIN SODIUM - SQ 10,000 UNITS/ML VIAL SQ SCH ×2 (03:57→11:00)
[2017-02-26 04:00] VITALS: BP 95/66; PULSE 95; RESP 24; TEMP 97.7; O2SAT 95
[2017-02-26] MEDS ORDERED: FURO40TA PO (06:22)
[2017-02-26 06:23] LABS: MEAN CELL VOLUME 80.6 FL (80.0-100.0); MEAN CORPUSCULAR HEMOGLOBIN 25.4 PG (27.0-34.0); MEAN CORPUSCULAR HGB CONC 31.5 % (32.0-36.0); PLATELET COUNT 262 TH/MM3 (150-450); RED BLOOD COUNT 4.59 MIL/MM3 (4.00-5.30); RED CELL DISTRIBUTION WIDTH 17.5 % (11.6-17.2); REVIEW FLAG FINAL; WHITE BLOOD COUNT 8.3 TH/MM3 (4.0-11.0)
--- NOTE | 2017-02-26 06:23 | HHI.DCPOC ---
Discharge Care Plan Diagnosis: (1) Cardiomyopathy (2) CHF (congestive heart failure) Goals to Promote Your Health * To prevent worsening of your condition and complications * To maintain your health at the optimal level Directions to Meet Your Goals Take your medications as prescribed Follow your dietary instruction Follow activity as directed Keep your appointments as scheduled Take your immunizations and boosters as scheduled If your symptoms worsen call your PCP, if no PCP go to Urgent Care Center or Emergency Room Smoking is Dangerous to Your Health. Avoid second hand smoke Call the 24-hour hour crisis hotline for domestic abuse at Hu Rogel MD R2 Feb 26, 2017 06:23
[2017-02-26 07:23] LABS: BICARBONATE 23.5 MEQ/L (21.0-32.0); POTASSIUM 4.3 MEQ/L (3.5-5.1)
[2017-02-26 08:00] VITALS: BP 140/74; PULSE 90; RESP 20; TEMP 97.5; O2SAT 97
[2017-02-26] MEDS: SPIRONOLACTONE 25 MG TAB PO SCH (08:19)
[2017-02-26] MEDS: ASPIRIN 81 MG CHEW TAB CHEW SCH (08:19)
[2017-02-26] MEDS: POTASSIUM CHLORIDE 10 MEQ CONTROLLED RELEASE TAB PO SCH (08:19)
[2017-02-26] MEDS: METOPROLOL TARTRATE 25 MG TAB PO SCH (08:19)
[2017-02-26] MEDS: FUROSEMIDE 40 MG TAB PO SCH (08:19)
[2017-02-26] MEDS: NICOTINE 14 MG/24 HR PATCH T-DERMAL SCH (08:19)
[2017-02-26] MEDS: SODIUM CHLORIDE 0.9% FLUSH 10 ML FLUSH IV FLUSH SCH (08:20)
--- NOTE | 2017-02-26 10:52 | HHI.FPPN ---
Subjective Remarks Patient seen and examined with medical team this morning. No acute events overnight per nursing staff. Vital signs remained stable. She reports today that her breathing has improved and feels much better since her admission. Medical team stressed the importance of appropriate follow-up and encouraged her to apply to Medicare. She has no other complaints. She denies any fevers, chills, dizziness, chest pain, NVD, abdominal pain, or calf tenderness. (Hu Rogel MD R2) Objective Vitals Vital Signs Date Time Temp Pulse Resp B/P (MAP) Pulse Ox O2 Delivery O2 Flow Rate FiO2 02/26/17 08:00 97.5 90 20 140/74 (96) 97 02/26/17 04:00 Room Air 02/26/17 04:00 97.7 95 24 95/66 (76) 95 02/26/17 00:00 97.9 90 22 101/68 (79) 99 02/26/17 00:00 Room Air 02/25/17 20:09 102 02/25/17 20:00 97.4 99 16 107/59 (75) 97 02/25/17 20:00 Room Air 02/25/17 16:00 97.6 104 18 107/79 (88) 98 02/25/17 15:00 99 02/25/17 11:47 97.8 90 18 103/77 (86) 98 I/O 02/25/17 02/25/17 02/25/17 02/26/17 02/26/17 02/26/17 07:00 15:00 23:00 07:00 15:00 23:00 Intake Total 250 ml 960 ml 240 ml Output Total 1000 ml 900 ml 1200 ml Balance -750 ml 60 ml -960 ml Intake Oral 250 ml 960 ml 240 ml Output Urine Total 1000 ml 900 ml 1200 ml # Bowel Movements 1 0 (Hu Rogel MD R2) Result Diagram: 02/26/1752602/26/17526 Objective Remarks GENERAL: Well-nourished, well-developed female sitting up in bed watching TV eating her breakfast in no acute distress. SKIN: Warm and moist. No rash. HEENT: Atraumatic, normocephalic with EOMI. Pulsating JVD appreciated on physical exam. CARDIOVASCULAR: Regular rate and rhythm without obvious murmurs, gallops, or rubs. Mild S3 appreciated. RESPIRATORY: Improved bilateral crackles from prior exams. No increased work of breathing. Patient currently on room air in no distress. GASTROINTESTINAL: Abdomen soft, non-tender, nondistended with positive bowel sounds. No masses appreciated. MUSCULOSKELETAL: No cyanosis or edema. Strength grossly WNL. Improved pedal edema. NEURO/PSYCH: Afocal. Awake, alert, and oriented x3. Normal interaction with examiner and medical staff. Normal speech and judgment. (Hu Rogel MD R2) A/P Assessment and Plan Patient seen and examined. Case reviewed and discussed with the resident team. Agree with the plan of care as discussed with me and documented in the resident note. Discharge Planning Plan for discharge today. She will need to be discharged on CHF medication regimen. Discharge is difficult as she lacks a primary care physician at this time. Consulting case management to help her find a PCP. She would also benefit from a residential counselor and a cardiac rehab program. Ultimately she may require an ICD or even a heart transplant given the severity of her disease. Case management encouraged patient to contact her insurance underwriter, [employer] , in order to be properly set up with a primary care provider. She was also given information for the [facility] for [facility] as they may accept her insurance at this time. (Hu Rogel MD R2) Attending Attestation Patient seen and examined. Case reviewed and discussed with the resident team. Agree with plan of care as discussed with me and documented in the resident note. She feels well today and is ready to go home. We discussed applying for disability as her EF has been low for more than a year. It was emphasized how important it is to follow up with her Dr as CHF needs close follow up (Mickie Parker MD) Problem List: (1) CHF (congestive heart failure) ICD Codes: I50.9 - Heart failure, unspecified Status: Acute Plan: History of CHF with cardiomyopathy, severe EF reduction to the 20-25% range 6 months ago. Patient presenting with uncompensated acute on chronic CHF exacerbation with increasing shortness of breath over the past 3 days. Chest x- ray: Interstitial pulmonary edema. EKG: Sinus tachycardia to 100 bpm. Normal intervals. No cardiac block, bundles, or ST elevation/depression appreciated. Troponins normal X3. BNP elevated to 1522. ECHO pending. -Echocardiogram: Pending - Supplemental O2 therapy as needed Continue cardiac monitoring Continue incentive spirometry Request strict I's and O's and daily weights - Salt and free water restriction Lasix 40 mg by mouth twice a day - Spironolactone 25 mg daily -Metoprolol tartrate 12.5 mg twice a day -ASA 81mg daily -Defer on starting lisinopril to monitor blood pressure as multiple medications have been initiated over the last 48 hours -Patient given lab order for BMP to check electrolytes in 3-5 days upon discharge -Recommend PCP and cardiology follow-up within one week (2) Tobacco abuse ICD Codes: Z72.0 - Tobacco use Status: Chronic Plan: Patient with chronic tobacco abuse Nicotine patch 14 mg daily, to be removed at night - Counseling on nicotine cessation - Would benefit from patches/gum/medication as an outpatient (3) Nutrition, metabolism, and development symptoms ICD Codes: R63.8 - Other symptoms and signs concerning food and fluid intake Status: Acute Plan: Fluids: 1.5L free water restriction, Electrolyte: Within normal limits, sodium restriction 2g Diet: Heart healthy diet with 1500 mL fluid restriction and 2 g sodium restriction Prophylaxis: DuoNeb's when necessary for shortness of breath, Hydroxyzine when necessary for insomnia, Apoorva-Colace when necessary for constipation (4) No contraindication to deep vein thrombosis (DVT) prophylaxis ICD Codes: Z78.9 - Other specified health status Status: Acute Plan: Heparin 5000 units every 8 hours SCD/TEDs (Hu Rogel MD R2) Problem Qualifiers (1) CHF (congestive heart failure): Hu Rogel MD R2 Feb 26, 2017 10:52 Mickie Parker MD Feb 26, 2017 14:20
[2017-02-26 11:26] VITALS: O2SAT 97
[2017-02-26 12:00] VITALS: BP 94/64; PULSE 85; RESP 18; TEMP 98.3; O2SAT 97
--- NOTE | 2017-02-26 23:28 | HHI.DS ---
Discharge Summary Admission Date Feb 22, 2017 at 10:05 Discharge Date: Feb 26, 2017 Admitting Diagnosis congestive heart failure, cardiomyopathy, interstitial edema (1) CHF (congestive heart failure) Diagnosis: Principal Plan: History of CHF with cardiomyopathy, severe EF reduction to the 20-25% range 6 months ago. Patient presenting with uncompensated acute on chronic CHF exacerbation with increasing shortness of breath over the past 3 days. Chest x- ray: Interstitial pulmonary edema. EKG: Sinus tachycardia to 100 bpm. Normal intervals. No cardiac block, bundles, or ST elevation/depression appreciated. Troponins normal X3. BNP elevated to 1522. ECHO pending. -Echocardiogram: Pending - Supplemental O2 therapy as needed Continue cardiac monitoring Continue incentive spirometry Request strict I's and O's and daily weights - Salt and free water restriction Lasix 40 mg by mouth twice a day - Spironolactone 25 mg daily -Metoprolol tartrate 12.5 mg twice a day -ASA 81mg daily -Defer on starting lisinopril to monitor blood pressure as multiple medications have been initiated over the last 48 hours -Patient given lab order for [facility] to check electrolytes in 3-5 days upon discharge -Recommend PCP and cardiology follow-up within one week ICD Codes: I50.9 - Heart failure, unspecified Status: Acute (2) Tobacco abuse Diagnosis: Secondary Plan: Patient with chronic tobacco abuse Nicotine patch 14 mg daily, to be removed at night - Counseling on nicotine cessation - Would benefit from patches/gum/medication as an outpatient ICD Codes: Z72.0 - Tobacco use Status: Chronic (3) Nutrition, metabolism, and development symptoms Diagnosis: Principal Plan: Fluids: 1.5L free water restriction, Electrolyte: Within normal limits, sodium restriction 2g Diet: Heart healthy diet with 1500 mL fluid restriction and 2 g sodium restriction Prophylaxis: DuoNeb's when necessary for shortness of breath, Hydroxyzine when necessary for insomnia, Apoorva-Colace when necessary for constipation ICD Codes: R63.8 - Other symptoms and signs concerning food and fluid intake Status: Acute (4) No contraindication to deep vein thrombosis (DVT) prophylaxis Diagnosis: Principal Plan: Heparin 5000 units every 8 hours SCD/TEDs ICD Codes: Z78.9 - Other specified health status Status: Acute Brief History Ms. Phelps is a 46 y/o F with a history of CHF presenting to the emergency department with 3 days of shortness of breath. She states that the shortness of breath has increased severity over each of the last 3 days and is worse with exertion, lying supine, and not alleviated at rest. She has no chest pain, palpitations, or peripheral edema. She also notes a productive cough with clear/ white sputum, but has resolved over the last 24 hours. She was previously diagnosed with CHF and cardiomyopathy of unknown etiology. She does have a steelscope operator, Dr. Larson, that has prescribed her Lasix 40 mg twice a day. She states that she has been out of the medication for the past 3 days which is likely exacerbated her symptoms. She has not followed up with her steelscope operator in over 6 months and her last hospitalization for CHF was approximately 6 months ago. She endorses no history of pulmonary embolism or DVT. On review of systems she does endorse a history of 6 months of intermittent dizziness and nausea that resolves without intervention. She states these episodes are weeks between each other and do not affect her everyday life. CBC/BMP: 02/26/17 0527 02/26/17 0527 Significant Findings Laboratory Tests Test 02/24/17 05:45 02/25/17 07:11 02/26/17 05:27 Mean Corpuscular Hemoglobin 25.8 PG (27.0-34.0) 26.0 PG (27.0-34.0) 25.4 PG (27.0-34.0) Mean Corpuscular Hemoglobin Concent 31.5 % (32.0-36.0) 31.5 % (32.0-36.0) Random Glucose 111 MG/DL (74-106) 108 MG/DL (74-106) Albumin 2.8 GM/DL (3.4-5.0) Alanine Aminotransferase (ALT/SGPT) 66 U/L (10-53) Chloride Level 108 MEQ/L (98-107) 108 MEQ/L (98-107) Carbon Dioxide Level 19.3 MEQ/L (21.0-32.0) 20.8 MEQ/L (21.0-32.0) Estimat Glomerular Filtration Rate 82 ML/MIN (>89) 77 ML/MIN (>89) 60 ML/MIN (>89) Red Cell Distribution Width 17.4 % (11.6-17.2) 17.5 % (11.6-17.2) Mean Platelet Volume 11.5 FL (7.0-11.0) Blood Urea Nitrogen 19 MG/DL (7-18) 19 MG/DL (7-18) PE at Discharge GENERAL: Well-nourished, well-developed female sitting up in bed watching TV eating her breakfast in no acute distress. SKIN: Warm and moist. No rash. HEENT: Atraumatic, normocephalic with EOMI. Pulsating JVD appreciated on physical exam. CARDIOVASCULAR: Regular rate and rhythm without obvious murmurs, gallops, or rubs. Mild S3 appreciated. RESPIRATORY: Improved bilateral crackles from prior exams. No increased work of breathing. Patient currently on room air in no distress. GASTROINTESTINAL: Abdomen soft, non-tender, nondistended with positive bowel sounds. No masses appreciated. MUSCULOSKELETAL: No cyanosis or edema. Strength grossly WNL. Improved pedal edema. NEURO/PSYCH: Afocal. Awake, alert, and oriented x3. Normal interaction with examiner and medical staff. Normal speech and judgment. Hospital Course Patient was admitted for acute on chronic CHF exacerbation. Her home regimen of Lasix 40 mg twice a day was started. The patient responded appropriately with exam presenting symptoms. Repeat echocardiogram showed an ejection fraction less than 20% with global hypokinesis, dilated left ventricle and atrium, moderate to severe mitral valve regurgitation, benign atrial septal aneurysm, mild tricuspid regurgitation, and a small left-sided pleural effusion. Due to the extent of her CHF she was then started on spironolactone, metoprolol, and aspirin. While guidelines also indicate the patient should be on an ENRIKE inhibitor, this was not initiated due to her blood pressure. On hospital day 3 the patient's breathing had returned to baseline and she agreed to discharge. Medical team recommended follow up with her PCP for a cardiology referral. She was also given an order for a basic metabolic profile in one week to evaluate electrolytes as she has started multiple medications. Pt Condition on Discharge: Stable Discharge Disposition: Discharge Home Discharge Instructions DIET: Follow Instructions for: Heart Healthy Diet Activities you can perform: Regular-No Restrictions Follow up Referrals: Cardiology - 1 Week PCP Follow-up - 1 Week New Orders: BASIC METABOLIC PROF - 3-5 Days New Medications: Aspirin (Aspirin Low Strength) 81 Mg Chew 81 MG CHEW DAILY, #30 EA Furosemide (Furosemide) 40 Mg Tab 40 MG PO BID@09,18, #60 TAB 1 Refill Metoprolol Tartrate (Metoprolol Tartrate) 25 Mg Tab 12.5 MG PO Q12HR, #60 TAB Spironolactone (Aldactone) 25 Mg Tab 25 MG PO DAILY, #30 TAB Discontinued Medications: Furosemide (Lasix) 20 Mg Tab 20 MG PO BID, #60 TAB 0 Refills Lisinopril (Lisinopril) 5 Mg Tab 5 MG PO DAILY for Blood Pressure Management, #30 TAB 0 Refills Hu Rogel MD R2 Feb 26, 2017 23:28
== END 2017-02-26 15:34 | disposition home or self-care (01) | DRG 293 ==
LOC: NEPE 07:42 → OBSVTOIN 10:05 → NEDA 10:05 → UNDOADMOB 10:06 → NEDA 10:06 → N04B 14:54 → NEDA 14:54 → OBSVTOIN 02-25 10:59 → INTOOBSV 02-25 10:59
PROVIDERS: ADMIT Family Medicine; ATTEND Family Medicine
DX: I50.9 Heart failure, unspecified (principal); I42.0 Dilated cardiomyopathy; F17.210 Nicotine dependence, cigarettes, uncomplicated; F12.90 Cannabis use, unspecified, uncomplicated; K08.9 Disorder of teeth and supporting structures, unspecified; Z91.19 Patient's noncompliance with other medical treatment and regimen
CPT/HCPCS: 71010; 80048; 80053; 82550; 83735; 83880; 84484; 85025; 85027; 85610; 85730; 93005; 93306; 94150; 94640; 94664; 96372; 96374; G0378; J1644; J1940

== ENCOUNTER 2018-02-13 23:38 | Observation (INO) ==
--- NOTE | 2018-02-14 01:55 | XR ---
EXAM DATE: 02/14/2018 1:51 AM EDT AGE/SEX: 47 years / Female INDICATIONS: . Short of breath for 4 days. CLINICAL DATA: This is the patient's initial encounter. Patient reports that signs and symptoms have been present for 4 - 6 days and indicates a pain score of 0/10. MEDICAL/SURGICAL HISTORY: Congestive heart failure. Smoker. section. COMPARISON: [facility] [place], CHEST 1V SINGLE AP, 01/29/2018. . FINDINGS: Frontal and lateral views of the chest demonstrate a normal size cardiac silhouette. There is abnorma l lower lung zone interstitial opacity bilaterally, increased from the prior study with blunting of t he costophrenic sulci. No pneumothorax is identified. There is likely lower lung zone airspace consol idation as well. Bones and soft tissues demonstrate no acute abnormality. CONCLUSION: Abnormal increased interstitial and airspace opacities in the lower lung zones small bilateral pleura l effusions. The pattern, appearance, and interval change favors pulmonary edema as the etiology. Electronically signed by: Howrad Saxena MD 02/14/2018 1:54 AM EDT
[2018-02-14] MEDS ORDERED: Azithromycin 250 MG Tablet PO ONE (02:07)
[2018-02-14 02:34] LABS: Baso # (Auto) 0.1 th/mm3 (0.0-0.2); Baso % (Auto) 0.9 % (0.0-2.0); Eos # (Auto) 0.1 th/mm3 (0.0-0.4); Eos % (Auto) 0.9 % (0.0-4.0); Hematocrit 31.5 % (35.0-46.0); Hemoglobin 9.9 gm/dL (11.6-15.3); Lymph # (Auto) 1.4 th/mm3 (1.0-4.8); Mean Corpuscular HGB Conc 31.5 % (32.0-36.0); Mean Corpuscular Hemoglobin 24.6 pg (27.0-34.0); Mean Corpuscular Volume 78.1 fL (80.0-100.0); Mean Platelet Volume 9.2 fL (7.0-11.0); Mono # (Auto) 0.8 th/mm3 (0.0-0.9); Mono % (Auto) 7.8 % (0.0-8.0); Neut # (Auto) 8.1 th/mm3 (1.8-7.7); Neut % (Auto) 77.4 % (16.0-70.0); Platelet Count 364 th/mm3 (150-450); Red Blood Count 4.03 mil/mm3 (4.00-5.30); Red Cell Distribution Width 18.5 % (11.6-17.2); White Blood Count 10.4 th/mm3 (4.0-11.0)
[2018-02-14 02:49] LABS: Alanine Aminotransferase 30 U/L (10-53); Albumin 2.5 g/dL (3.4-5.0); Anion Gap 9 meq/L (5-15); Aspartate Aminotransferase 32 U/L (15-37); Blood Urea Nitrogen 15 mg/dL (7-18); Calcium 8.4 mg/dL (8.5-10.1); Chloride 107 meq/L (98-107); Glomerular Filtration Rate 71 mL/min (>89); Glucose,Random 107 mg/dL (74-106); Potassium 4.2 meq/L (3.5-5.1); Sodium 138 meq/L (136-145)
[2018-02-14 02:53] LABS: Alkaline Phosphatase 134 U/L (45-117); Total Protein 6.9 g/dL (6.4-8.2); Troponin I 0.04 ng/mL (0.02-0.05)
--- NOTE | 2018-02-14 03:22 | ED ---
HPI General Chief complaint: Respiratory Symptoms Stated complaint: SOB/ Pos Fever Time Seen by Provider: 02/14/18 01:28 Source: patient Mode of arrival: ambulatory Limitations: no limitations History of Present Illness HPI narrative: Patient is a 47-year-old female with history of CHF she said she is unclear as to why she developed CHF she does not think she had myocarditis or cardiomyopathy but she has had it for years she is on Lasix which she has run out of her Lasix. She comes in short of breath getting worse for the last few weeks and she has been off her meds for about the same time she takes 40 mg of Lasix daily she denies being on digoxin. She denies being on any other medication except Lasix which she is out of. She has orthopnea she cannot lay flat is worse with flat it is improved with sitting up straight she was recently admitted for the same chest x-ray shows what looks to be congestion edema she is tachypneic in mild respiratory distress Onset (ago): day(s) Radiation: non-radiation Severity: moderate Related Data Home Medications Medication Instructions Recorded Confirmed furosemide [Lasix] 20 mg PO BID 01/29/18 01/29/18 Allergies Allergy/AdvReac Type Severity Reaction Status Date / Time No Known Allergies Allergy Unverified 02/14/18 00:18 Review of Systems ROS: all other systems reviewed are negative [facility] Medical History Medical History CHF (congestive heart failure) (Acute) delivery delivered (Acute) Social History Social History Substance History: Active Abuse Second Hand Smoke Exposure: Yes Smoking Status: Current every day smoker Tobacco Type: Cigarettes How Often Do You Have a Drink Containing Alcohol: Never Recent Travel in [facility] within the Last 8 Weeks: No Recent Out of Country Travel within the Last 8 Weeks: No Substance Abuse Detail Marijuana: Substance Use Status: Active Route Used Substance Abuse: Inhalation Reason for Use: Calm Down and Feels Good Immunization History Tetanus Immunization: >5 Years Hx Influenza Vaccine This Season: No Exam Narrative Exam Narrative: GENERAL: Periods mildly in respiratory distress SKIN: Warm and dry. HEAD: Atraumatic. Normocephalic. EYES: Pupils equal and round. No scleral icterus. No injection or drainage. ENT: No nasal bleeding or discharge. Mucous membranes pink and moist. NECK: Trachea midline. No JVD. CARDIOVASCULAR: Regular rate and rhythm. RESPIRATORY: + accessory muscle use. Diffuse rales worse in the bases bilateral GASTROINTESTINAL: Abdomen soft, non-tender, nondistended. Hepatic and splenic margins not palpable. MUSCULOSKELETAL: Extremities without clubbing, cyanosis, or edema. No obvious deformities. NEUROLOGICAL: Awake and alert. No obvious cranial nerve deficits. Motor grossly within normal limits. Five out of 5 muscle strength in the arms and legs. Normal speech. PSYCHIATRIC: Appropriate mood and affect; insight and judgment normal. Course Initial Documented Vital Signs Temperature 97.5 F L 02/13/18 23:45 Pulse Rate 122 H 02/13/18 23:45 Respiratory Rate 28 H 02/13/18 23:45 Blood Pressure 157/94 H 02/13/18 23:45 Pulse Oximetry 98 02/13/18 23:45 Last Documented Vital Signs Temperature 97.5 F L 02/13/18 23:45 Pulse Rate 109 H 02/14/18 03:32 Respiratory Rate 26 H 02/14/18 03:32 Blood Pressure 128/91 H 02/14/18 03:32 Pulse Oximetry 95 02/14/18 03:32 Medical Decision Making [facility] Narrative Medical decision making narrative: Chest x-ray shows what looks to be pulmonary edema bilaterally as well as a BNP of 3200 she is given Lasix IV 40 she urinates multiple times feels much improved but I will keep her for further fine tuning of her congestive heart failure in the inpatient. Patient agrees to stay she is given Lasix and Nitropaste to help vasodilate her decrease her afterload and help the Lasix diuresis her Differential Diagnosis Differential Diagnosis: Reuben versus fluid overload versus kidney failure versus cardiomyopathy versus bronchitis versus asthma versus COPD Lab Data Result diagrams: 02/14/18 02:22 02/14/18 02:22 Lab Results 02/14/18 02/14/18 02/14/18 Range/Units 02:22 02:22 02:22 WBC 10.4 (4.0-11.0) th/mm3 RBC 4.03 (4.00-5.30) mil/mm3 Hgb 9.9 L (11.6-15.3) gm/dL Hct 31.5 L (35.0-46.0) % MCV 78.1 L (80.0-100.0) fL MCH 24.6 L (27.0-34.0) pg MCHC 31.5 L (32.0-36.0) % RDW 18.5 H (11.6-17.2) % Plt Count 364 D (150-450) th/mm3 MPV 9.2 (7.0-11.0) fL Neut % (Auto) 77.4 H (16.0-70.0) % Lymph % (Auto) 13.0 (9.0-44.0) % Talbot % (Auto) 7.8 (0.0-8.0) % Eos % (Auto) 0.9 (0.0-4.0) % Baso % (Auto) 0.9 (0.0-2.0) % Neut # (Auto) 8.1 H (1.8-7.7) th/mm3 Lymph # (Auto) 1.4 (1.0-4.8) th/mm3 Talbot # (Auto) 0.8 (0.0-0.9) th/mm3 Eos # (Auto) 0.1 (0.0-0.4) th/mm3 Baso # (Auto) 0.1 (0.0-0.2) th/mm3 WBC Differential . Differential Comment Auto diff final Sodium 138 (136-145) meq/L Potassium 4.2 (3.5-5.1) meq/L Chloride 107 (98-107) meq/L Carbon Dioxide 22.0 (21.0-32.0) meq/L Anion Gap 9 (5-15) meq/L BUN 15 (7-18) mg/dL Creatinine 0.86 (0.50-1.00) mg/dL Estimated GFR 71 L (>89) mL/min Random Glucose 107 H (74-106) mg/dL Calcium 8.4 L (8.5-10.1) mg/dL Total Bilirubin 0.8 (0.2-1.0) mg/dL AST 32 (15-37) U/L ALT 30 (10-53) U/L Alkaline Phosphatase 134 H (45-117) U/L Troponin I 0.04 (0.02-0.05) ng/mL B-Natriuretic Peptide 3216 H (0-100) pg/mL Total Protein 6.9 (6.4-8.2) g/dL Albumin 2.5 L (3.4-5.0) g/dL Imaging Data Radiologist's impression: Chest X-Ray 02/14/18 01:29 CONCLUSION: Abnormal increased interstitial and airspace opacities in the lower lung zones small bilateral pleural effusions. The pattern, appearance, and interval change favors pulmonary edema as the etiology. Discharge Plan Discharge Disposition Patient Disposition: 30 Still Patient Discharge Details Diagnosis: CHF (congestive heart failure) Physicians Team ED Provider: Curry Stark Primary Care Provider: Primary Care Patricia Browning Attending Provider: Opal Coates Discharge Interventions Interventions: Vital Signs Last Done: 02/14/18 03:32 Status ED Status: Admitted Observation Patient
--- NOTE | 2018-02-14 05:48 | P.HP ---
History of Present Illness Service: [facility] Primary Care Physician: No Primary Care Physician History of Present Illness: 47-year-old female with a past medical history significant for congestive heart failure presents to the emergency department for evaluation of shortness of breath 2-3 days. She reports associated cough, fever and increased ankle swelling. The patient normally takes 40 mg of Lasix daily however she has been off her meds for the last few weeks at which time her shortness of breath started and has progressively worsened. The patient has orthopnea and paroxysmal nocturnal dyspnea. The patient denies any chest pain. No abdominal pain. No nausea/vomiting/diarrhea. Review of Systems All other systems reviewed negative except as stated in HPI PMFSH - History History Provided By: Patient - Medical History Medical History: Medical History (Last Updated 02/14/18 @ 00:14 by Isela Harris) CHF (congestive heart failure) (Acute) delivery delivered - Surgical History Surgical History: Surgical History (Last Updated 02/14/18 @ 05:40 by Opal Coates MD) History of - Family History Family History: Family History (Last Updated 02/14/18 @ 05:40 by Opal Coates MD) Other Diabetes mellitus - Tobacco History Second Hand Smoke Exposure: Yes Tobacco Use In Past 30 Days: Yes Smoking Status: Current every day smoker Tobacco Type: Cigarettes - Alcohol History How Often Do You Have a Drink Containing Alcohol: Never - Substance Use History Substance History: Active Abuse - Substance Use Type Marijuana Status: Active Route Used: Inhalation Reason for Use: Calm Down, Feels Good - Travel History Recent Travel in the [place] Within the Last 8 Weeks: No Recent Travel Out of the Country Within the Last 8 Weeks: No - Immunization History Tetanus Immunization: >5 Years Hx Influenza Vaccine This Season: No Medications and Allergies Active Medications: Active Medications Albuterol (Duoneb Neb (Prn)) 1 ampul NEB Q4HR NEB PRN PRN Reason: SOB/Wheezing Furosemide (Lasix Inj) 40 mg IV.PUSH BID@0900,1800 [place] Sodium Chloride (Ns Flush) 2 ml IV.FLUSH BID [place] Sodium Chloride (Ns Flush) 2 ml IV.FLUSH UNSCH PRN PRN Reason: FLUSH AFTER USING IV ACCESS Allergies Allergy/AdvReac Type Severity Reaction Status Date / Time No Known Allergies Allergy Unverified 02/14/18 00:18 Home Medications Medication Instructions Recorded Confirmed Type furosemide [Lasix] 20 mg PO BID 01/29/18 01/29/18 History Exam Vital signs: Vital Signs 02/13/18 23:45 02/14/18 00:16 02/14/18 02:05 Temperature 97.5 F L Pulse Rate 122 H 110 H Respiratory Rate 28 H 22 Blood Pressure 157/94 H Pulse Oximetry 98 100 02/14/18 03:32 Temperature Pulse Rate 109 H Respiratory Rate 26 H Blood Pressure 128/91 H Pulse Oximetry 95 Intake & Output 02/13/18 02/13/18 02/14/18 06:59 18:59 06:59 Weight 63.503 kg Narrative: Gen.: No acute distress Head: Normocephalic. Atraumatic. EENT: Pupils equal round and reactive to light. Nose without drainage. Airway intact. Throat without injection. Cardiovascular: Regular rate and rhythm. No murmurs, rubs or gallops. Respiratory: Bilateral crackles. Abdomen: Soft, nontender, nondistended. No peritoneal signs. Musculoskeletal: No gross deformities. 2+ edema to the midshin Skin: No obvious rashes or erythema. Neuro: Sensory and motor grossly intact. Cranial nerves II through XII grossly intact. Results - Labs CBC & Chem 7: 02/14/18 02:22 02/14/18 02:22 Labs: Laboratory Results - last 24 hr 02/14/18 02/14/18 02/14/18 02:22 02:22 02:22 WBC 10.4 RBC 4.03 Hgb 9.9 L Hct 31.5 L MCV 78.1 L MCH 24.6 L MCHC 31.5 L RDW 18.5 H Plt Count 364 D MPV 9.2 Neut % (Auto) 77.4 H Lymph % (Auto) 13.0 [place] % (Auto) 7.8 Eos % (Auto) 0.9 Baso % (Auto) 0.9 Neut # (Auto) 8.1 H Lymph # (Auto) 1.4 [place] # (Auto) 0.8 Eos # (Auto) 0.1 Baso # (Auto) 0.1 WBC Differential . Differential Comment Auto diff final Sodium 138 Potassium 4.2 Chloride 107 Carbon Dioxide 22.0 Anion Gap 9 BUN 15 Creatinine 0.86 Estimated GFR 71 L Random Glucose 107 H Calcium 8.4 L Total Bilirubin 0.8 AST 32 ALT 30 Alkaline Phosphatase 134 H Troponin I 0.04 B-Natriuretic Peptide 3216 H Total Protein 6.9 Albumin 2.5 L - Imaging Impressions Chest X-Ray 02/14/18 01:29 CONCLUSION: Abnormal increased interstitial and airspace opacities in the lower lung zones small bilateral pleural effusions. The pattern, appearance, and interval change favors pulmonary edema as the etiology. Caprini VTE Risk Assessment Caprini VTE Risk Assessment: No/Low Risk (score <= 1) Caprini Risk Assessment Model: Point Value = 1 Point Value = 2 Point Value = 3 Point Value = 5 Age 41-60 Minor surgery BMI > 25 kg/m2 Swollen legs Varicose veins or History of unexplained or recurrent spontaneous Oral contraceptives or hormone replacement Sepsis (< 1 month) Serious lung disease, including pneumonia (< 1 month) Abnormal pulmonary function Acute myocardial infarction Congestive heart failure (< 1 month) History of inflammatory bowel disease Medical patient at bed rest Age 61-74 Arthroscopic surgery Major open surgery (> 45 min) Laparoscopic surgery (> 45 min) Malignancy Confined to bed (> 72 hours) Immobilizing plaster cast Central venous access Age >= 75 History of VTE Family history of VTE Factor V Leiden Prothrombin [id number] Lupus anticoagulant Anticardiolipin antibodies Elevated serum homocysteine Heparin-induced thrombocytopenia Other congenital or acquired thrombophilia Stroke (< 1 month) Elective arthroplasty Hip, pelvis, or leg fracture Acute spinal cord injury (< 1 month) Prophylaxis Regimen: Total Risk Factor Score Risk Level Prophylaxis Regimen 0-1 Low Early ambulation 2 Moderate Order ONE of the following: *Sequential Compression Device (SCD) *Heparin 5000 units SQ BID 3-4 Higher Order ONE of the following medications: *Heparin 5000 units SQ TID *Enoxaparin/Lovenox 40 mg SQ daily (WT < 150 kg, CrCl > 30 mL/min) *Enoxaparin/Lovenox 30 mg SQ daily (WT < 150 kg, CrCl > 10-29 mL/min) *Enoxaparin/Lovenox 30 mg SQ BID (WT < 150 kg, CrCl > 30 mL/min) AND/OR *Sequential Compression Device (SCD) 5 or more Highest Order ONE of the following medications: *Heparin 5000 units SQ TID (Preferred with Epidurals) *Enoxaparin/Lovenox 40 mg SQ daily (WT < 150 kg, CrCl > 30 mL/min) *Enoxaparin/Lovenox 30 mg SQ daily (WT < 150 kg, CrCl > 10-29 mL/min) *Enoxaparin/Lovenox 30 mg SQ BID (WT < 150 kg, CrCl > 30 mL/min) AND *Sequential Compression Device (SCD) Assessment and Plan - Plan Assessment/plan: 1. CHF exacerbation Chest x-ray significant for pulmonary edema BNP 3216 Patient has been noncompliant with her home Lasix IV Lasix Case management consulted to assist with patient's medication 2. Cough/fever Chest x-ray with no signs of pneumonia No leukocytosis Monitor 3. Mildly elevated troponin Troponin 0.04 ACS rule out pending medical and serial troponins/EKGs Patient denies any chest pain FEN Regular diet Electrolytes: Monitor and replete as needed
--- NOTE | 2018-02-14 10:12 | ECHRPT ---
Indication: CARDIOMYOPATHY CONCLUSIONS Moderately dilated left ventricle. The left ventricular systolic function is severely reduced with an estimated ejection fraction 15- 2 0%. The right ventricle is mildly dilated. Vohctxeb-cm-rympfj mitral valve regurgitation. The mitral valve regurgitation jet is directed posteriorly due to tethering of the posterior leaflet . Trace aortic valve regurgitation. There is mild tricuspid valve regurgitation. There is estimated ogjawgvq-py-tefpfy pulmonary hypertension present ( 63mmHg). Mild pulmonary valve regurgitation. BP: / HR: Rhythm: MEASUREMENTS (Male / Female) Normal Values Technical Quality: 2D ECHO LV Diastolic Diameter PLAX 5.9 cm 4.2 - 5.9 / 3.9 - 5.3 cm LV Systolic Diameter PLAX 5.4 cm IVS Diastolic Thickness 0.8 cm 0.6 - 1.0 / 0.6 - 0.9 cm LVPW Diastolic Thickness 0.7 cm 0.6 - 1.0 / 0.6 - 0.9 cm LV Relative Wall Thickness 0.3 RV Internal Dim ED PLAX 2.4 cm LA Systolic Diameter LX 4.1 cm 3.0 - 4.0 / 2.7 - 3.8 cm LV Ejection Fraction MOD BP 19.5 % >= 55 % LV Ejection Fraction MOD 4C 20.4 % LV Ejection Fraction 4C AL 18.2 % LV Ejection Fraction MOD 2C 18.0 % LV Ejection Fraction 2C AL 20.4 % M-MODE Aortic Root Diameter MM 2.7 cm AV Cusp Separation MM 1.8 cm DOPPLER MR Peak Velocity 621.0 cm/s MR Peak Gradient 154.3 mmHg Mitral E Point Velocity 127.0 cm/s TR Peak Velocity 363.0 cm/s TR Peak Gradient 52.7 mmHg Right Atrial Pressure 10.0 mmHg Pulmonary Artery Systolic Pressu 62.7 mmHg Right Ventricular Systolic Press 62.7 mmHg FINDINGS LEFT VENTRICLE Moderately dilated left ventricle. Wall thickness is normal. The left ventricular systolic function is severely reduced with an estimated ejection fraction 15- 2 0%. RIGHT VENTRICLE The right ventricle is mildly dilated. The right ventricular systoilc function is moderately decreased. LEFT ATRIUM The left atrial size is mildly dilated. RIGHT ATRIUM The right atrial size is normal. ATRIAL SEPTUM Normal atrial septal thickness AORTA The aortic root and proximal ascending aorta are normal in size on limited imaging. MITRAL VALVE Structurally normal mitral valve. Dzngvbvh-fk-usxdpv mitral valve regurgitation. The mitral valve regurgitation jet is directed posteriorly due to tethering of the posterior leaflet No mitral valve stenosis. AORTIC VALVE Trileaflet aortic valve. Trace aortic valve regurgitation. No aortic valve stenosis. TRICUSPID VALVE There is mild tricuspid valve regurgitation. No tricuspid valve stenosis. There is estimated lerbjplo-bp-gojbxu pulmonary hypertension present ( 63mmHg). PULMONARY VALVE Mild pulmonary valve regurgitation. VESSELS The inferior vena cava is normal in size. PERICARDIUM No pericardial effusion. Dante Chang DO (Electronically Signed) Final Date:14 February 2018 10:10
[2018-02-14] MEDS: Lisinopril 5 MG Tablet PO SCH (11:04)
[2018-02-14] MEDS: Metoprolol Tartrate 25 MG Tablet PO SCH ×2 (11:04→21:48)
[2018-02-14] MEDS: Potassium Chloride 10 MEQ ER Capsule PO SCH ×2 (11:04→21:48)
[2018-02-14 11:54] LABS: Troponin I 0.05 ng/mL (0.02-0.05)
[2018-02-14] MEDS ORDERED: guaiFENesin/Dextromethorphan 200 MG/20 MG 10 ML UDC PO PRN (15:19)
[2018-02-14] MEDS: Azithromycin 250 MG Tablet PO SCH (15:20)
--- NOTE | 2018-02-14 15:23 | P.PN ---
Subjective Interval history: Follow-up for CHF exacerbation. The patient reports continued shortness of breath, dyspnea on exertion, orthopnea, and lower extremity edema; minimally improved compared to her arrival. She reports cough, productive of blood- tinged yellow sputum. She states the hemoptysis started after she had been forcefully coughing for over a week. She states she ran out of her Lasix at least a week ago. Denies any chest pain. She is homeless. 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 She has no other medical complaints at this time. Physical Exam Vital signs: Vital Signs 02/13/18 23:45 02/14/18 00:16 02/14/18 02:05 Temperature 97.5 F L Pulse Rate 122 H 110 H Respiratory Rate 28 H 22 Blood Pressure 157/94 H Pulse Oximetry 98 100 02/14/18 03:32 02/14/18 06:41 02/14/18 07:06 Temperature Pulse Rate 109 H 112 H 117 H Respiratory Rate 26 H 22 16 Blood Pressure 128/91 H 138/85 148/93 H Pulse Oximetry 95 94 L 96 02/14/18 08:00 02/14/18 09:42 02/14/18 12:18 Temperature 98.8 F 97.7 F Pulse Rate 107 H 107 H 110 H Respiratory Rate 20 20 Blood Pressure 120/87 121/87 Pulse Oximetry 99 97 Intake & Output 02/13/18 02/14/18 02/14/18 18:59 06:59 18:59 Weight 63.503 kg Narrative: GENERAL: Well-nourished, well-developed patient in NAD. Dyspneic with conversation. SKIN: Warm and dry. No rash. HEENT: Normocephalic. Atraumatic. Pupils equal and round. Mucous membranes pink and moist. NECK: Supple. Trachea midline. CARDIOVASCULAR: Regular rate and rhythm. 2/6 systolic murmur noted. RESPIRATORY: No accessory muscle use. Poor expiratory effort, decreased breath sounds at bilateral bases. Breath sounds equal bilaterally. GASTROINTESTINAL: Abdomen soft, non-tender, nondistended. Normoactive bowel sounds x4. MUSCULOSKELETAL: No obvious deformities. 1+ bilateral pedal/ankle edema. NEUROLOGICAL: Awake and alert. No obvious cranial nerve deficits. Motor grossly within normal limits. Moving all extremities spontaneously. Normal speech. PSYCHIATRIC: Appropriate mood and affect; insight and judgment normal. Results - Labs CBC & Chem 7: 02/14/18 02:22 02/14/18 02:22 Laboratory Results - last 24 hr 02/14/18 02/14/18 02/14/18 02:22 02:22 02:22 WBC 10.4 RBC 4.03 Hgb 9.9 L Hct 31.5 L MCV 78.1 L MCH 24.6 L MCHC 31.5 L RDW 18.5 H Plt Count 364 D MPV 9.2 Neut % (Auto) 77.4 H Lymph % (Auto) 13.0 [place] % (Auto) 7.8 Eos % (Auto) 0.9 Baso % (Auto) 0.9 Neut # (Auto) 8.1 H Lymph # (Auto) 1.4 [place] # (Auto) 0.8 Eos # (Auto) 0.1 Baso # (Auto) 0.1 WBC Differential . Differential Comment Auto diff final Sodium 138 Potassium 4.2 Chloride 107 Carbon Dioxide 22.0 Anion Gap 9 BUN 15 Creatinine 0.86 Estimated GFR 71 L Random Glucose 107 H Calcium 8.4 L Total Bilirubin 0.8 AST 32 ALT 30 Alkaline Phosphatase 134 H Total Creatine Kinase Troponin I 0.04 B-Natriuretic Peptide 3216 H Total Protein 6.9 Albumin 2.5 L 02/14/18 11:15 WBC RBC Hgb Hct MCV MCH MCHC RDW Plt Count MPV Neut % (Auto) Lymph % (Auto) [place] % (Auto) Eos % (Auto) Baso % (Auto) Neut # (Auto) Lymph # (Auto) [place] # (Auto) Eos # (Auto) Baso # (Auto) WBC Differential Differential Comment Sodium Potassium Chloride Carbon Dioxide Anion Gap BUN Creatinine Estimated GFR Random Glucose Calcium Total Bilirubin AST ALT Alkaline Phosphatase Total Creatine Kinase 42 Troponin I 0.05 B-Natriuretic Peptide Total Protein Albumin - Imaging Impressions Chest X-Ray 02/14/18 01:29 CONCLUSION: Abnormal increased interstitial and airspace opacities in the lower lung zones small bilateral pleural effusions. The pattern, appearance, and interval change favors pulmonary edema as the etiology. Assessment and Plan - Plan 47-year-old female with: Acute systolic CHF exacerbation: Patient with known history of CHF, echo showed EF less than 20%, moderate to severe MR, trace AR, mild TR. Patient is noncompliant with medications and following with cardiology. Returns to ED with fluid overload. -Chest x-ray reviewed and significant for pulmonary edema -BNP 3216 -Continue diuresis with IV Lasix 40 mg twice daily with KCl replacement -Monitor strict I's and O's, daily weights -Fluid restrictions -Start on low-dose metoprolol and lisinopril, monitor blood pressure closely -Repeat Echo consistent with previous, EF 15-20% -Case management to assist with obtaining medications and follow-up with appropriate physicians Hemoptysis/cough/fever: Suspect acute bronchitis -Chest x-ray with no signs of pneumonia -Check sputum culture -Continue azithromycin 500 mg daily for possible atypical pneumonia -Anti-tussives as needed Mildly elevated troponin: Troponin 0.04 -ACS rule out pending with serial troponins/EKGs -Patient denies any chest pain -Monitor on telemetry DVT Prophylaxis: Lovenox Discharge Planning: Discharge pending further clinical improvement. Not yet ready for discharge. Likely require 2-3 days of IV diuresis.
[2018-02-14 17:28] LABS: Troponin I 0.05 ng/mL (0.02-0.05)
--- NOTE | 2018-02-15 08:03 | ECG ---
Date Performed: 02/14/2018 Time Performed: 18:22:36 PTAGE: 47 years EKG: SINUS TACHYCARDIA WITH FREQUENT VENTRICULAR PREMATURE COMPLEXES RIGHT ATRIAL ENLARGEMENT LE FT ATRIAL ENLARGEMENT MARKED LEFT AXIS DEVIATION POSSIBLE RIGHT VENTRICULAR CONDUCTION DELAY NONSPECI FIC T-WAVE ABNORMALITY ABNORMAL ECG INTERPRETATION BASED ON A DEFAULT AGE OF 40 YEARS NO PREVIOUS TRACING DOCTOR: Brendon Islas Interpretating Date/Time 02/15/2018 08:01:34
[2018-02-15 08:25] LABS: Calcium 8.5 mg/dL (8.5-10.1); Carbon Dioxide 23.8 meq/L (21.0-32.0)
[2018-02-15] MEDS: Azithromycin 250 MG Tablet PO SCH (09:36)
[2018-02-15] MEDS: Potassium Chloride 10 MEQ ER Capsule PO SCH ×2 (09:36→21:29)
[2018-02-15] MEDS: Metoprolol Tartrate 25 MG Tablet PO SCH ×2 (09:36→21:29)
[2018-02-15] MEDS: Enoxaparin Inj 40 MG/0.4 ML Syringe SQ SCH ×2 (09:37→09:39)
--- NOTE | 2018-02-15 09:59 | ECG ---
Date Performed: 02/14/2018 Time Performed: 22:09:57 PTAGE: 47 years EKG: SINUS TACHYCARDIA WITH OCCASIONAL VENTRICULAR PREMATURE COMPLEXES RIGHT ATRIAL ENLARGEMENT LEFT ATRIAL ENLARGEMENT MARKED LEFT AXIS DEVIATION POSSIBLE RIGHT VENTRICULAR CONDUCTION DELAY NONSPE CIFIC T-WAVE ABNORMALITY ABNORMAL ECG PREVIOUS TRACING : 02/14/2018 18.22 DOCTOR: Brendon Islas Interpretating Date/Time 02/15/2018 09:58:20
--- NOTE | 2018-02-15 10:31 | P.PN ---
Subjective Interval history: Follow-up for CHF exacerbation. Patient reports improvement overnight. Denies any significant shortness of breath while at rest, however still dyspneic with exertion upon in relation to the restroom. She reports continued orthopnea. States her lower extremity edema has improved. She reports her cough has improved. Denies any fevers or chills. Denies any chest pain. Denies any other medical complaints at this time. Physical Exam Vital signs: Vital Signs 02/14/18 12:18 02/14/18 16:00 02/14/18 20:00 Temperature 97.7 F 98.0 F 98.8 F Pulse Rate 110 H 105 H 96 H Respiratory Rate 20 32 H 16 Blood Pressure 121/87 111/84 112/82 Pulse Oximetry 97 96 97 02/15/18 00:00 02/15/18 03:42 02/15/18 07:44 Temperature 98.1 F 98.2 F 98.3 F Pulse Rate 99 H 101 H 93 H Respiratory Rate 19 16 18 Blood Pressure 102/68 109/63 107/82 Pulse Oximetry 98 92 L 96 Intake & Output 02/14/18 02/15/18 02/15/18 18:59 06:59 18:59 Intake Total 240 / 240 Balance 240 / 240 Weight 60.4 kg 59.2 kg Intake: Oral 240 / 240 Other: # Voids 1 Date of Last Bowel Movement 02/11/18 02/14/18 # Bowel Movements 1 Weight On Admission 63.503 kg Narrative: GENERAL: Well-nourished, well-developed patient in NAD. Dyspneic after ambulation. SKIN: Warm and dry. No rash. HEENT: Normocephalic. Atraumatic. Pupils equal and round. Mucous membranes pink and moist. CARDIOVASCULAR: Regular rate and rhythm. 2/6 systolic murmur noted. RESPIRATORY: No accessory muscle use. Faint crackles at bilateral bases, worse on the left, overall improved. Breath sounds equal bilaterally. GASTROINTESTINAL: Abdomen soft, non-tender, nondistended. Normoactive bowel sounds x4. MUSCULOSKELETAL: No obvious deformities. Trace bilateral pedal/ankle edema. NEUROLOGICAL: Awake and alert. No obvious cranial nerve deficits. Motor grossly within normal limits. Moving all extremities spontaneously. Normal speech. PSYCHIATRIC: Appropriate mood and affect; insight and judgment normal. Results - Labs CBC & Chem 7: 02/14/18 02:22 02/15/18 07:23 Laboratory Results - last 24 hr 02/14/18 02/14/18 02/15/18 11:15 16:40 07:23 Sodium 136 Potassium 4.0 Chloride 102 Carbon Dioxide 23.8 Anion Gap 10 BUN 21 H Creatinine 1.04 H Estimated GFR 57 L Random Glucose 97 Calcium 8.5 Total Creatine Kinase 42 72 Troponin I 0.05 0.05 Microbiology 02/14/18 15:33 Sputum - Expectorated Sputum Gram Stain - Final - Imaging Chest X-Ray 02/14/18 01:29 CONCLUSION: Abnormal increased interstitial and airspace opacities in the lower lung zones small bilateral pleural effusions. The pattern, appearance, and interval change favors pulmonary edema as the etiology. Assessment and Plan - Plan 47-year-old female with: Acute systolic CHF exacerbation: Patient with known history of CHF, echo showed EF less than 20%, moderate to severe MR, trace AR, mild TR. Patient is noncompliant with medications and following with cardiology. Returns to ED with fluid overload. -Chest x-ray reviewed and significant for pulmonary edema -BNP 3216 -Continue diuresis with IV Lasix 40 mg twice daily with KCl replacement -Monitor strict I's and O's, daily weights -Fluid restrictions -Start on low-dose metoprolol and lisinopril if BP can tolerate, monitor blood pressure closely -Repeat Echo consistent with previous, EF 15-20% -Case management to assist with obtaining medications and follow-up with appropriate physicians; mandatory outpatient referral to cardiology -Improving, not yet ready for discharge Hemoptysis/cough/fever: Suspect acute bronchitis. Blood tinged sputum began after patient with forceful coughing. -Chest x-ray with no signs of pneumonia -Sputum culture with normal respiratory kelsey -Continue azithromycin 500 mg daily for possible atypical pneumonia -Anti-tussives as needed -Improved Mildly elevated troponin: Troponin 0.04, 0.05, 0.05 -ACS ruled out with negative serial troponins and EKG without acute ischemic changes -Patient denies any chest pain -Monitor on telemetry DVT Prophylaxis: Lovenox Discharge Planning: Discharge pending further clinical improvement. Not yet ready for discharge. Likely discharge tomorrow 02/16. Case management to assist with medications and follow up.
[2018-02-15] MEDS: Lisinopril 5 MG Tablet PO SCH (13:40)
[2018-02-16] MEDS: Metoprolol Tartrate 25 MG Tablet PO SCH (09:31)
[2018-02-16] MEDS: Potassium Chloride 10 MEQ ER Capsule PO SCH (09:31)
[2018-02-16] MEDS: Enoxaparin Inj 40 MG/0.4 ML Syringe SQ SCH (09:32)
[2018-02-16] MEDS: Azithromycin 250 MG Tablet PO SCH (09:33)
--- NOTE | 2018-02-16 11:23 | P.DS ---
Date of admission: 02/14/18 03:27 Primary care physician: No Primary Care Physician Anticipated date of discharge: 02/16/18 Brief History from admission: 47-year-old female with a past medical history significant for congestive heart failure presents to the emergency department for evaluation of shortness of breath 2-3 days. She reports associated cough, fever and increased ankle swelling. The patient normally takes 40 mg of Lasix daily however she has been off her meds for the last few weeks at which time her shortness of breath started and has progressively worsened. The patient has orthopnea and paroxysmal nocturnal dyspnea. The patient denies any chest pain. No abdominal pain. No nausea/vomiting/diarrhea. DS: Diagnosis - Discharge Diagnosis (1) CHF (congestive heart failure) Status: Acute DS: Medications - Discharge Medications Prescriptions: azithromycin 500 mg PO DAILY 3 Days #6 tab furosemide [Lasix] 40 mg PO BID #70 tab metoprolol tartrate 25 mg PO BID #60 tab potassium chloride 10 meq PO BID #60 cap DS: Summary Hospital Course: Patient Update on Day of Discharge: Follow-up for CHF, the patient reports feeling much better again today. Denies any significant shortness of breath while at rest. Lower extremity edema mostly resolved. O2 sat stable on room air. Continues to deny any chest pain. Cough is improving, nonproductive today. Denies any other medical complaints at this time. Hospital course: Acute systolic CHF exacerbation: Patient with known history of CHF, echo showed EF less than 20%, moderate to severe MR, trace AR, mild TR. Patient is noncompliant with medications and following with cardiology. Returns to ED with fluid overload. Chest x-ray reviewed and significant for pulmonary edema. BNP 3216. Given diuresis with IV Lasix 40 mg twice daily with KCl replacement. Monitor strict I's and O's, daily weights. Fluid restrictions. Started on low- dose metoprolol and lisinopril however BP low with both medications, therefore held lisinopril. Repeat Echo consistent with previous, EF 15-20%. Case management to assist with obtaining medications and follow-up with appropriate physicians; mandatory outpatient referral to cardiology. Improved. Stable on room air. Thoroughly counseled on CHF education and importance of following up with cardiology, patient verbalized understanding. Hemoptysis/cough/fever: Suspect acute bronchitis. Blood tinged sputum began after patient with forceful coughing. Chest x-ray with no signs of pneumonia. Sputum culture with normal respiratory kelsey. Continued azithromycin 500 mg daily for possible atypical pneumonia. Anti-tussives as needed. Improved. Mildly elevated troponin: Troponin 0.04, 0.05, 0.05. ACS ruled out with negative serial troponins and EKG without acute ischemic changes. Patient denies any chest pain. - Time Spent with Patient Total time spent providing and/or coordinating discharge services: Greater than 30 minutes - Quality: VTE Deep Vein Thrombosis/Pulmonary Embolism Present on Admission: No Exam Vital signs: Vital Signs 02/15/18 12:00 02/15/18 16:00 02/15/18 17:43 Temperature 97.6 F 97.7 F Pulse Rate 87 93 H 89 Respiratory Rate 16 16 15 Blood Pressure 95/69 L 105/84 Pulse Oximetry 98 98 02/15/18 20:00 02/15/18 20:25 02/15/18 23:43 Temperature 98.7 F 98.2 F Pulse Rate 93 H 90 73 Respiratory Rate 16 16 Blood Pressure 101/68 95/64 L Pulse Oximetry 100 98 02/16/18 00:00 02/16/18 01:21 02/16/18 03:52 Temperature 98.0 F Pulse Rate 85 86 92 H Respiratory Rate 22 16 Blood Pressure 109/70 Pulse Oximetry 95 02/16/18 04:00 02/16/18 08:00 02/16/18 08:58 Temperature 97.6 F Pulse Rate 90 90 Respiratory Rate 16 16 Blood Pressure 119/79 Pulse Oximetry 98 Intake & Output 02/15/18 02/16/18 02/16/18 18:59 06:59 18:59 Weight 59.2 kg Other: # Voids 2 Date of Last Bowel Movement 02/15/18 02/15/18 Narrative: GENERAL: Well-nourished, well-developed thin middle-aged female patient in [facility]. SKIN: Warm and dry. No rash. HEENT: Normocephalic. Atraumatic. Pupils equal and round. Mucous membranes pink and moist. CARDIOVASCULAR: Regular rate and rhythm. 2/6 systolic murmur noted. RESPIRATORY: No accessory muscle use. Lungs clear to auscultation today. Breath sounds equal bilaterally. GASTROINTESTINAL: Abdomen soft, non-tender, nondistended. Normoactive bowel sounds x4. MUSCULOSKELETAL: No obvious deformities. No lower extremity edema today. NEUROLOGICAL: Awake and alert. No obvious cranial nerve deficits. Motor grossly within normal limits. Moving all extremities spontaneously. Normal speech. PSYCHIATRIC: Appropriate mood and affect; insight and judgment normal. Results Procedures completed during hospitalization: None. Labs on day of discharge: Preliminary micro results at discharge 02/14/18 15:33 Sputum Culture - Preliminary Sputum - Expectorated Sputum Heavy growth normal respiratory kelsey at 24 hours - Impressions ITS Impressions Chest X-Ray 02/14/18 01:29 CONCLUSION: Abnormal increased interstitial and airspace opacities in the lower lung zones small bilateral pleural effusions. The pattern, appearance, and interval change favors pulmonary edema as the etiology. Discharge Plan - Discharge Disposition Patient Disposition: Discharge Home - Discharge Condition Condition: Stable - Discharge Order Discharge Orders: Discharge Order (Routine); Ordered 02/16/18 Ordered By: Celia Garland - Discharge Details Anticipated Discharge Date: 02/16/18 - Physicians Team Primary Care Provider: Primary Care Physici,No Attending Provider: Eliel Keita Other Providers: [employer],Insurance
[2018-02-16] MEDS: Lisinopril 5 MG Tablet PO SCH (13:26)
== END 2018-02-16 16:40 | disposition home or self-care (01) ==
LOC: NEPE 23:38 → NEDA 23:38 → NEPFCDU 23:38 → NEDH 02-14 05:34 → NEPFCDU 02-14 08:11
PROVIDERS: ADMIT Hospitalist; ATTEND Hospitalist
DX: J81.1 Chronic pulmonary edema; R50.9 Fever, unspecified; R06.01 Orthopnea; Z91.19 Patient's noncompliance with other medical treatment and regimen; F12.90 Cannabis use, unspecified, uncomplicated; J90 Pleural effusion, not elsewhere classified; I50.23 Acute on chronic systolic (congestive) heart failure; R74.8 Abnormal levels of other serum enzymes; R05 Cough; F17.210 Nicotine dependence, cigarettes, uncomplicated